=== PATIENT | female | born 1940 | race Caucasian/White ===

== ENCOUNTER → 2016-10-06 | Outpatient (CLI) | payer OTHER ==
[2016-02-05 15:00] VITALS: BP 157/78
[~2016-10-06] MED LIST: AMLO10TA2 PO; AMLO5TAB2 PO; ASPI81TA9 PO; ATOR40TA59 PO; CARV6.252 PO; CLON0.1T PO; CLOP75TA PO; FERR-26 PO; FURO-69 PO; GLIM2TAB2 PO; HYDR12.53 PO; LEVO112T4 PO; LOSA100T6 PO; METF10002 PO; OMEP40CA5 PO; POTA10CA PO; RANI300C PO; SIMV40TA3 PO; TRIA1TAB3 PO
--- NOTE | 2016-10-07 13:43 | CARD ---
APPROVED REPORT EXAM: Two-dimensional and M-mode echocardiogram with Doppler and color Doppler. Other Information Quality : AverageHR: 66bpm Rhythm : NSR, PVC's INDICATION Non STEMI 2D DIMENSIONS RVDd3.0 (2.9-3.5cm)Left Atrium(2D)3.9 (1.6-4.0cm) IVSd0.9 (0.7-1.1cm)Aortic Root(2D)2.7 (2.0-3.7cm) LVDd5.0 (3.9-5.9cm)LVOT Diameter2.1 (1.8-2.4cm) PWd0.9 (0.7-1.1cm)LVDs3.5 (2.5-4.0cm) FS (%) 31.6 %SV71.6 ml LVEF(%)59.2 (>50%) Aortic Valve AoV Peak Hamlet.246.9cm/sAoV VTI61.8cm AO Peak GR.24.4mmHgLVOT Peak Hamlet.100.5cm/s LVOT VTI 26.35cmAO Mean GR.14mmHg RYNE (VMAX)1.35ix7IVN (VTI)1.48cm2 Mitral Valve MV E Snxoleut35.9cm/sMV DECEL FKSC039zf MV A Hwbtocuc427.3cm/sMV E Mean Gr.2mmHg MV YZV21xtM/A Ratio0.9 MV A Fjjjydlg723owHNC (PHT)3.83cm2 TDI E/Lateral E'11.8E/Medial E'10.9 Pulmonary Valve PV Peak Bfvnixdp06.6cm/sPV Peak Grad.3mmHg RVOT VTI18.2cm Tricuspid Valve TR P. Dhfpcmwb436rf/sRAP LEOUTVUS5jqVv TR Peak Gr.17vuYvTLXW38znKd Pulmonary Vein S1 Hpqqqmop86.3cm/sD2 Gushhgnm51.8cm/s PVa wetsiqgm112zhjr LEFT VENTRICLE The left ventricle is normal size. There is normal left ventricular wall thickness. Left ventricle sy stolic function is normal. The Ejection Fraction is 60-65%. There is normal LV segmental wall motion. Transmitral Doppler flow pattern is Grade I-abnormal relaxation pattern. There is no ventricular sep ragini defect visualized. RIGHT VENTRICLE The right ventricle is normal size. The right ventricular systolic function is normal. ATRIA The left atrium size is normal. The right atrium size is normal. The interatrial septum is intact wit h no evidence for an atrial septal defect or patent foramen ovale as noted on 2-D or Doppler imaging. AORTIC VALVE The aortic valve is trileaflet. Doppler and Color Flow revealed trace aortic regurgitation. There is mild valvular aortic stenosis. MITRAL VALVE The mitral valve leaflets are calcified. Mitral annular calcification is mild. There is no evidence o f mitral valve prolapse. There is no mitral valve stenosis. Doppler and Color Flow revealed trace kae ral regurgitation. TRICUSPID VALVE The tricuspid valve is normal in structure. Doppler and Color Flow revealed mild tricuspid regurgitat ion. There is moderate pulmonary hypertension. The PA pressure was estimated at 42 mmHg. PULMONIC VALVE The pulmonary valve is normal in structure. Doppler and Color Flow revealed mild pulmonic valvular re gurgitation. There is no pulmonic valvular stenosis. GREAT VESSELS The aortic root is normal in size. The ascending aorta is normal in size. The pulmonary artery and va lve are not well visualized, but are probably normal size. The IVC is normal in size and collapses >5 0% with inspiration. PERICARDIAL EFFUSION There is no pleural effusion. There is no evidence of significant pericardial effusion. Critical Notification Critical Value: No <Conclusion> Left ventricle systolic function is normal. The Ejection Fraction is 60-65%. There is normal LV segmental wall motion. Transmitral Doppler flow pattern is Grade I-abnormal relaxation pattern. There is mild valvular aortic stenosis. Trace aortic regurgitation. Trace mitral regurgitation. Mild tricuspid regurgitation. There is moderate pulmonary hypertension. The PA pressure was estimated at 42 mmHg. There is no evidence of significant pericardial effusion.
== END | disposition home or self-care (01) ==
LOC: ECHO 08:42
PROVIDERS: ATTEND Nurse Practitioner
DX: I21.4 Non-ST elevation (NSTEMI) myocardial infarction (principal); I27.2 Other secondary pulmonary hypertension; I08.3 Combined rheumatic disorders of mitral, aortic and tricuspid valves
CPT/HCPCS: 93306

== ENCOUNTER → 2017-04-15 | Outpatient (CLI) | payer OTHER ==
[2016-02-05 15:00] VITALS: BP 157/78
[~2017-04-15] MED LIST changes: +ASPI-612 PO; -ASPI81TA9 PO; +METF-620 PO; -METF10002 PO; -POTA10CA PO; +POTASSIUM CHLO10 MEQ PO
--- NOTE | 2017-04-15 12:45 | CARD ---
APPROVED REPORT EXAM: Two-dimensional and M-mode echocardiogram with Doppler and color Doppler. Other Information Quality : GoodHR: 62bpm Rhythm : NSR INDICATION Non STEMI Takotsubo cardiomyopathy RISK FACTORS Obesity 2D DIMENSIONS RVDd3.5 (2.9-3.5cm)Left Atrium(2D)3.6 (1.6-4.0cm) IVSd1.0 (0.7-1.1cm)Aortic Root(2D)2.8 (2.0-3.7cm) LVDd4.5 (3.9-5.9cm)LVOT Diameter2.3 (1.8-2.4cm) PWd0.9 (0.7-1.1cm)LVDs3.2 (2.5-4.0cm) FS (%) 29.8 %SV53.2 ml LVEF(%)57.1 (>50%) Aortic Valve AoV Peak Hamlet.270.5cm/sAoV VTI76.4cm AO Peak GR.29.3mmHgLVOT Peak Hamlet.100.1cm/s AO Mean GR.17mmHgAVA (VMAX)1.56cm2 Mitral Valve MV E Vbgfgrmd80.8cm/sMV E Peak Gr.4mmHg MV DECEL WDGA547zbFT A Baqlodyo287.7cm/s MV E Mean Gr.2mmHgE/A Ratio0.9 MV A Eoqwpfmf813xx Pulmonary Valve PV Peak Ewvnnjoy30.3cm/s Pulmonary Vein S1 Gvaaxzqk55.7cm/sD2 Lrufxjcf16.3cm/s PVa wvlkvisy84jdfk LEFT VENTRICLE The left ventricle is normal size. There is normal left ventricular wall thickness. The left ventricu lar systolic function is normal. The Ejection Fraction is 55-60%. There is normal LV segmental wall m otion. Transmitral Doppler flow pattern is Grade I-abnormal relaxation pattern. RIGHT VENTRICLE The right ventricle is normal size. There is normal right ventricular wall thickness. The right ventr icular systolic function is normal. ATRIA The left atrium is mildly dilated. The right atrium size is normal. The interatrial septum is intact with no evidence for an atrial septal defect or patent foramen ovale as noted on 2-D or Doppler imagi ng. AORTIC VALVE The aortic valve is not well visualized but is calcified and displays decreased opening. Doppler and Color Flow revealed no significant aortic regurgitation. There is mild valvular aortic stenosis. Calc ulated aortic valve area is 1.6 cm2 with maximum pressure gradient of 29 mmHg and mean pressure gradi ent of 17 mmHg. MITRAL VALVE Mitral annular calcification is mild. The mitral valve leaflets are mildly thickened. There is no radha dence of mitral valve prolapse. There is no mitral valve stenosis. Doppler and Color Flow revealed mi ld mitral regurgitation. TRICUSPID VALVE Doppler and Color Flow revealed trace tricuspid regurgitation. PULMONIC VALVE The pulmonic valve is not well visualized but appears to open adequately. Doppler and Color Flow reve aled mild pulmonic valvular regurgitation. There is no pulmonic valvular stenosis by spectral Doppler . GREAT VESSELS The aortic root is normal in size. The ascending aorta is normal in size. The pulmonary artery is nor mal. The IVC is normal in size and collapses >50% with inspiration. PERICARDIAL EFFUSION There is no evidence of significant pericardial effusion. Critical Notification Critical Value: No <Conclusion> The left ventricular systolic function is normal. The Ejection Fraction is 55-60%. There is normal LV segmental wall motion. There is mild valvular aortic stenosis. Mild mitral regurgitation. Trace tricuspid regurgitation. There is no evidence of significant pericardial effusion.
== END | disposition home or self-care (01) ==
LOC: ECHO 10:42
PROVIDERS: ATTEND Internal Medicine Cardiovascular Disease
DX: I08.0 Rheumatic disorders of both mitral and aortic valves (principal)
CPT/HCPCS: 93306

== ENCOUNTER 2017-11-21 09:38 | Inpatient (IN) | payer OTHER ==
[2017-11-21 10:12] LABS: BILIRUBIN,URINE SMALL (NEG); CLARITY,URINE CLOUDY; COLOR,URINE AMBER; GLUCOSE,URINE NEGATIVE (NEG); NITRITE,URINE NEGATIVE (NEG); PROTEIN,URINE 30 mg/dL (NEG-TRACE)
[2017-11-21 10:35] LABS: AMORPHOUS SEDIMENT,UR PRESENT /HPF; BACTERIA,URINE 0 /HPF (0-FEW); HYALINE CASTS, URINE OCCASIONAL /HPF; RBC,URINE 0 /HPF (0-2); SQUAMOUS EPITHELIAL CELL,UR OCC /LPF; WBC,URINE RARE /HPF (0-4)
[2017-11-21] MEDS ORDERED: MORPHINE SULFATE 4 MG/ML DISP.SYRIN. (10:39)
[2017-11-21 10:40] LABS: ANION GAP 8 (6-14); BLOOD UREA NITROGEN 53 mg/dL (7-20); BUN/CREATININE RATIO 18 (6-20); CALCIUM 8.7 mg/dL (8.5-10.1); CARBON DIOXIDE 23 mmol/L (21-32); CHLORIDE 98 mmol/L (98-107); CREATININE 2.9 mg/dL (0.6-1.0); GFR 15.7; GLUCOSE 122 mg/dL (70-99); SODIUM 129 mmol/L (136-145)
[2017-11-21] MEDS: ONDANSETRON PF 4 MG/2 ML VIAL. IV (10:43)
[2017-11-21] MEDS: MORPHINE SULFATE 4 MG/ML DISP.SYRIN. IV (10:44)
[2017-11-21 10:48] LABS: BASO % 0 % (0-3); EOS % 0 % (0-3); HEMATOCRIT 31.5 % (36.0-47.0); HEMOGLOBIN 10.3 g/dL (12.0-15.5); LYMPH # 0.5 x10^3/uL (1.0-4.8); LYMPH % 3 % (24-48); MEAN CORPUSCULAR HEMOGLOBIN 27 pg (25-35); MEAN CORPUSCULAR HGB CONC 33 g/dL (31-37); MEAN CORPUSCULAR VOLUME 82 fL (79-100); MONO # 1.1 x10^3/uL (0.0-1.1); MONO % 6 % (0-9); NEUT # 17.5 x10^3uL (1.8-7.7); NEUT % 92 % (31-73); PLATELET COUNT 161 x10^3/uL (140-400); RED BLOOD COUNT 3.86 x10^6/uL (3.50-5.40); RED CELL DISTRIBUTION WIDTH 16.1 % (11.5-14.5); WHITE BLOOD COUNT 19.1 x10^3/uL (4.0-11.0)
[2017-11-21 10:50] LABS: TROPONINI 0.142 ng/mL (0.000-0.055)
[2017-11-21 10:54] LABS: CKMB INDEX 0.4 % (0-4); CKMB MASS 5.2 ng/mL (0.0-3.6); CREATINE KINASE 1336 U/L (26-192)
[2017-11-21 10:56] LABS: ADD MAN DIFF? YES; ALBUMIN 2.7 g/dL (3.4-5.0); ALBUMIN/GLOBULIN RATIO 0.7 (1.0-1.7); ALK PHOS 70 U/L (46-116); ALT (SGPT) 24 U/L (14-59); AST (SGOT) 52 U/L (15-37); TOTAL PROTEIN 6.7 g/dL (6.4-8.2)
[2017-11-21 10:59] LABS: INR 1.3 (0.8-1.1); PROTHROMBIN TIME PATIENT 15.3 SEC (11.7-14.0)
[2017-11-21] MEDS ORDERED: VANCOMYCIN 1.25 GM in IV NORMAL SALINE 250ML 250 ML IV (11:45)
[2017-11-21] MEDS ORDERED: PIPERACILLIN/TAZOBACTAM 3.375 GM in IV NORMAL SALINE 50ML 50 ML IV (11:45)
[2017-11-21] MEDS: IV NORMAL SALINE 1000ML BAG 1,000 ML IV ×2 (12:10→14:40)
[2017-11-21] MEDS: PIPERACILLIN/TAZOBACTAM 2.25 GM in IV NORMAL SALINE 50ML 50 ML IV ×2 (12:13→21:28)
[2017-11-21 12:38] LABS: % BANDS 12 % (0-9); % LYMPHS 1 % (24-48); % MONOS 3 % (0-10); % SEGS 84 % (35-66); PLT ESTIMATE ADEQUATE (ADEQUATE)
[2017-11-21 12:38] LABS: LACTIC ACID 1.6 mmol/L (0.4-2.0)
[2017-11-21] MEDS ORDERED: ONDANSETRON PF 4 MG/2 ML VIAL. IV ×2 (12:45→14:15)
[2017-11-21 13:01] LABS: CHOLESTEROL 107 mg/dL (0-200); HDLC 22 mg/dL (40-60); LDLC 56 mg/dL (0-100); NON-HDL CHOLESTEROL 85 mg/dL (0-129); TRIGLYCERIDES 147 mg/dL (0-150); VLDLC 29 mg/dL (0-40)
[2017-11-21 13:01] LABS: MAGNESIUM 1.7 mg/dL (1.8-2.4)
[2017-11-21 13:02] LABS: CHOLESTEROL/HDL RATIO 4.9
[2017-11-21 13:10] LABS: THYROID STIM HORMONE (TSH) 2.309 uIU/mL (0.358-3.74)
[2017-11-21] MEDS: fentaNYL PF VIAL 100 MCG/2 ML VIAL IV (13:59)
[2017-11-21] MEDS ORDERED: DOCUSATE SODIUM 100 MG CAPSULE. PO (14:15)
[2017-11-21] MEDS ORDERED: PIP/TAZO PER PHARMACY MC (14:15)
[2017-11-21] MEDS ORDERED: MAGNESIUM SULFATE 2GM 50 ML IV (14:15)
[2017-11-21] MEDS ORDERED: ENOXAPARIN 40 MG/0.4 ML SYRINGE. SQ (14:15)
[2017-11-21] MEDS: VANCOMYCIN 1.5 GM in IV 1/2 NORMAL SALINE 500 ML IV (14:29)
[2017-11-21] MEDS: MAGNESIUM SULFATE 2GM 50 ML IV (14:37)
[2017-11-21] MEDS: INSULIN LISPRO 300 UNITS/3 ML INSULN.PEN. SQ (17:00)
[2017-11-21] MEDS: CARVEDILOL 6.25 MG TABLET. PO (17:00)
[2017-11-21 18:04] LABS: POC GLUCOSE 150 mg/dL (70-99)
[2017-11-21] MEDS: HEPARIN PF for SUB-Q USE 5,000 UNIT/0.5 ML VIAL. SQ (18:15)
[2017-11-21] MEDS: ATORVASTATIN CALCIUM 40 MG TABLET. PO (21:27)
[2017-11-21 22:03] LABS: POC GLUCOSE 136 mg/dL (70-99)
[2017-11-22] MEDS: IV NORMAL SALINE 1000ML BAG 1,000 ML IV ×6 (02:49→20:09)
[2017-11-22] MEDS: traMADol 50 MG TABLET PO (02:49)
[2017-11-22] MEDS: ACETAMINOPHEN 325 MG TABLET. PO (02:49)
[2017-11-22 04:40] LABS: ADD MAN DIFF? NO
[2017-11-22 04:44] LABS: BASO % 0 % (0-3); EOS % 0 % (0-3); HEMATOCRIT 26.9 % (36.0-47.0); LYMPH # 0.7 x10^3/uL (1.0-4.8); LYMPH % 5 % (24-48); MEAN CORPUSCULAR HEMOGLOBIN 27 pg (25-35); MEAN CORPUSCULAR HGB CONC 34 g/dL (31-37); MEAN CORPUSCULAR VOLUME 81 fL (79-100); MONO % 7 % (0-9); NEUT # 13.4 x10^3uL (1.8-7.7); NEUT % 88 % (31-73); PLATELET COUNT 136 x10^3/uL (140-400); RED BLOOD COUNT 3.32 x10^6/uL (3.50-5.40); RED CELL DISTRIBUTION WIDTH 16.4 % (11.5-14.5); WHITE BLOOD COUNT 15.2 x10^3/uL (4.0-11.0)
[2017-11-22 05:20] LABS: ALBUMIN/GLOBULIN RATIO 0.6 (1.0-1.7); ALK PHOS 56 U/L (46-116); ALT (SGPT) 26 U/L (14-59); ANION GAP 9 (6-14); AST (SGOT) 43 U/L (15-37); BLOOD UREA NITROGEN 60 mg/dL (7-20); BUN/CREATININE RATIO 19 (6-20); CALCIUM 8.1 mg/dL (8.5-10.1); CARBON DIOXIDE 21 mmol/L (21-32); CHLORIDE 102 mmol/L (98-107); CREATININE 3.1 mg/dL (0.6-1.0); GFR 14.6; GLUCOSE 80 mg/dL (70-99); POTASSIUM 3.7 mmol/L (3.5-5.1); SODIUM 132 mmol/L (136-145); TOTAL BILIRUBIN 0.8 mg/dL (0.2-1.0); TOTAL PROTEIN 5.6 g/dL (6.4-8.2)
[2017-11-22 05:22] LABS: CKMB INDEX 0.2 % (0-4); CKMB MASS 1.3 ng/mL (0.0-3.6); CREATINE KINASE 613 U/L (26-192)
[2017-11-22] MEDS: PIPERACILLIN/TAZOBACTAM 2.25 GM in IV NORMAL SALINE 50ML 50 ML IV ×3 (06:21→21:31)
[2017-11-22] MEDS: LEVOTHYROXINE 112 MCG TABLET PO (06:22)
[2017-11-22] MEDS: PANTOPRAZOLE 40 MG TABLET.DR. PO (06:22)
[2017-11-22] MEDS: HEPARIN PF for SUB-Q USE 5,000 UNIT/0.5 ML VIAL. SQ ×3 (06:32→21:32)
[2017-11-22] MEDS: INSULIN LISPRO 300 UNITS/3 ML INSULN.PEN. SQ ×3 (07:51→17:00)
[2017-11-22] MEDS: methylPREDNISolone ACETATE 80 MG/ML VIAL. INJ (08:00)
[2017-11-22] MEDS: CARVEDILOL 6.25 MG TABLET. PO ×2 (08:00→17:00)
[2017-11-22] MEDS: LIDOCAINE 1%/EPI 1:100,000 30 ML VIAL. IJ (08:00)
[2017-11-22 08:11] LABS: POC GLUCOSE 70 mg/dL (70-99)
[2017-11-22] MEDS: GLIMEPIRIDE 2 MG TABLET. PO (08:30)
[2017-11-22] MEDS: amLODIPine BESYLATE 10 MG TABLET PO (08:30)
[2017-11-22] MEDS: ASPIRIN ENTERIC COATED 81 MG TABLET.DR. PO (08:40)
[2017-11-22] MEDS: CLOPIDOGREL BISULFATE 75 MG TABLET PO (08:40)
[2017-11-22] MEDS: DIGOXIN IV 500 MCG/2 ML AMPUL. IV (08:42)
[2017-11-22 08:45] LABS: MAGNESIUM 2.1 mg/dL (1.8-2.4)
[2017-11-22] MEDS ORDERED: POTASSIUM CHLORIDE 10 MEQ TABLET.ER. PO (09:00)
[2017-11-22 10:41] LABS: LACTIC ACID 1.1 mmol/L (0.4-2.0)
[2017-11-22] MEDS: IV NORMAL SALINE 500ML BAG 500 ML IV (12:00)
[2017-11-22 12:12] LABS: POC GLUCOSE 90 mg/dL (70-99)
[2017-11-22] MEDS: NOREPINEPHRIN PREMIX 250 ML IV (16:04)
[2017-11-22] MEDS: ATORVASTATIN CALCIUM 40 MG TABLET. PO (21:26)
[2017-11-22] MEDS: LACTOBACILLUS RHAMNOSUS GG 1 CAPSULE. PO (21:26)
[2017-11-23] MEDS: IV NORMAL SALINE 1000ML BAG 1,000 ML IV ×2 (04:22→15:17)
[2017-11-23] MEDS: traMADol 50 MG TABLET PO (04:23)
[2017-11-23 05:39] LABS: ADD MAN DIFF? NO
[2017-11-23] MEDS: PIPERACILLIN/TAZOBACTAM 2.25 GM in IV NORMAL SALINE 50ML 50 ML IV ×3 (05:42→21:42)
[2017-11-23] MEDS: HEPARIN PF for SUB-Q USE 5,000 UNIT/0.5 ML VIAL. SQ ×3 (05:43→21:44)
[2017-11-23 06:05] LABS: BASO % 0 % (0-3); EOS % 0 % (0-3); HEMATOCRIT 27.3 % (36.0-47.0); LYMPH # 0.7 x10^3/uL (1.0-4.8); LYMPH % 3 % (24-48); MEAN CORPUSCULAR HEMOGLOBIN 27 pg (25-35); MEAN CORPUSCULAR HGB CONC 33 g/dL (31-37); MEAN CORPUSCULAR VOLUME 82 fL (79-100); MONO # 0.8 x10^3/uL (0.0-1.1); MONO % 4 % (0-9); NEUT # 19.8 x10^3uL (1.8-7.7); NEUT % 93 % (31-73); PLATELET COUNT 175 x10^3/uL (140-400); RED BLOOD COUNT 3.33 x10^6/uL (3.50-5.40); RED CELL DISTRIBUTION WIDTH 16.8 % (11.5-14.5); WHITE BLOOD COUNT 21.4 x10^3/uL (4.0-11.0)
[2017-11-23 06:21] LABS: MRSA BY PCR Negative (Negative)
[2017-11-23 06:44] LABS: ALBUMIN 1.8 g/dL (3.4-5.0); ALBUMIN/GLOBULIN RATIO 0.5 (1.0-1.7); ALK PHOS 81 U/L (46-116); ALT (SGPT) 21 U/L (14-59); ANION GAP 14 (6-14); AST (SGOT) 32 U/L (15-37); BLOOD UREA NITROGEN 64 mg/dL (7-20); BUN/CREATININE RATIO 21 (6-20); CALCIUM 7.6 mg/dL (8.5-10.1); CARBON DIOXIDE 16 mmol/L (21-32); CHLORIDE 104 mmol/L (98-107); CREATININE 3.1 mg/dL (0.6-1.0); GFR 14.6; GLUCOSE 99 mg/dL (70-99); POTASSIUM 4.1 mmol/L (3.5-5.1); SODIUM 134 mmol/L (136-145); TOTAL BILIRUBIN 0.6 mg/dL (0.2-1.0); TOTAL PROTEIN 5.8 g/dL (6.4-8.2)
[2017-11-23 07:27] LABS: LACTIC ACID 0.9 mmol/L (0.4-2.0)
[2017-11-23] MEDS: INSULIN LISPRO 300 UNITS/3 ML INSULN.PEN. SQ ×3 (08:00→17:00)
[2017-11-23] MEDS: CARVEDILOL 6.25 MG TABLET. PO ×2 (08:00→11:27)
[2017-11-23] MEDS: amLODIPine BESYLATE 10 MG TABLET PO (08:44)
[2017-11-23 08:45] LABS: POC GLUCOSE 79 mg/dL (70-99)
[2017-11-23] MEDS: GLIMEPIRIDE 2 MG TABLET. PO (08:53)
[2017-11-23] MEDS: CLOPIDOGREL BISULFATE 75 MG TABLET PO (08:53)
[2017-11-23] MEDS: LACTOBACILLUS RHAMNOSUS GG 1 CAPSULE. PO ×2 (08:53→20:55)
[2017-11-23] MEDS: PANTOPRAZOLE 40 MG TABLET.DR. PO (08:53)
[2017-11-23] MEDS: ASPIRIN ENTERIC COATED 81 MG TABLET.DR. PO (08:54)
[2017-11-23] MEDS: MORPHINE SULFATE 4 MG/ML DISP.SYRIN. IV (08:54)
[2017-11-23] MEDS: LEVOTHYROXINE 112 MCG TABLET PO (08:54)
[2017-11-23] MEDS: NOREPINEPHRIN PREMIX 250 ML IV (15:17)
[2017-11-23 17:41] LABS: POC GLUCOSE 61 mg/dL (70-99)
[2017-11-23] MEDS: ATORVASTATIN CALCIUM 40 MG TABLET. PO (20:55)
[2017-11-24] MEDS: IV NORMAL SALINE 1000ML BAG 1,000 ML IV ×3 (00:06→19:21)
[2017-11-24] MEDS: DEXTROSE 50% 25 GM / 50ML DISP.SYRIN. IV (04:38)
[2017-11-24 04:46] LABS: POC GLUCOSE 22 mg/dL (70-99)
[2017-11-24 04:46] LABS: POC GLUCOSE 267 mg/dL (70-99)
[2017-11-24 05:27] LABS: POC GLUCOSE 181 mg/dL (70-99)
[2017-11-24 05:38] LABS: ADD MAN DIFF? NO
[2017-11-24 06:03] LABS: BASO % 0 % (0-3); EOS % 0 % (0-3); HEMATOCRIT 28.2 % (36.0-47.0); LYMPH # 0.7 x10^3/uL (1.0-4.8); LYMPH % 4 % (24-48); MEAN CORPUSCULAR HEMOGLOBIN 26 pg (25-35); MEAN CORPUSCULAR HGB CONC 32 g/dL (31-37); MEAN CORPUSCULAR VOLUME 83 fL (79-100); MONO # 1.1 x10^3/uL (0.0-1.1); MONO % 6 % (0-9); NEUT % 90 % (31-73); PLATELET COUNT 177 x10^3/uL (140-400); RED BLOOD COUNT 3.41 x10^6/uL (3.50-5.40); RED CELL DISTRIBUTION WIDTH 17.2 % (11.5-14.5); WHITE BLOOD COUNT 17.9 x10^3/uL (4.0-11.0)
[2017-11-24] MEDS: PIPERACILLIN/TAZOBACTAM 2.25 GM in IV NORMAL SALINE 50ML 50 ML IV ×2 (06:03→14:00)
[2017-11-24 06:04] LABS: POC GLUCOSE 162 mg/dL (70-99)
[2017-11-24] MEDS: HEPARIN PF for SUB-Q USE 5,000 UNIT/0.5 ML VIAL. SQ ×3 (06:04→22:49)
[2017-11-24 06:17] LABS: ANION GAP 10 (6-14); BLOOD UREA NITROGEN 57 mg/dL (7-20); CALCIUM 7.4 mg/dL (8.5-10.1); CARBON DIOXIDE 20 mmol/L (21-32); CHLORIDE 106 mmol/L (98-107); CREATININE 2.6 mg/dL (0.6-1.0); GFR 17.8; GLUCOSE 177 mg/dL (70-99); POTASSIUM 3.8 mmol/L (3.5-5.1); SODIUM 136 mmol/L (136-145)
[2017-11-24] MEDS: CARVEDILOL 6.25 MG TABLET. PO (08:00)
[2017-11-24] MEDS ORDERED: ASPIRIN ENTERIC COATED 81 MG TABLET.DR. PO (08:00)
[2017-11-24] MEDS: INSULIN LISPRO 300 UNITS/3 ML INSULN.PEN. SQ ×3 (08:00→17:00)
[2017-11-24] MEDS: LEVOTHYROXINE 112 MCG TABLET PO (08:40)
[2017-11-24] MEDS: ASPIRIN ENTERIC COATED 81 MG TABLET.DR. PO (08:40)
[2017-11-24] MEDS: PANTOPRAZOLE 40 MG TABLET.DR. PO (08:40)
[2017-11-24] MEDS: CLOPIDOGREL BISULFATE 75 MG TABLET PO (08:41)
[2017-11-24] MEDS: amLODIPine BESYLATE 10 MG TABLET PO (09:00)
[2017-11-24 09:54] LABS: MAGNESIUM 2.2 mg/dL (1.8-2.4)
[2017-11-24] MEDS: GLIMEPIRIDE 2 MG TABLET. PO (10:28)
[2017-11-24] MEDS: LACTOBACILLUS RHAMNOSUS GG 1 CAPSULE. PO ×2 (10:28→20:57)
[2017-11-24] MEDS: traMADol 50 MG TABLET PO ×2 (10:28→22:51)
[2017-11-24] MEDS: ATORVASTATIN CALCIUM 40 MG TABLET. PO (20:57)
[2017-11-25] MEDS: PIPERACILLIN/TAZOBACTAM 2.25 GM in IV NORMAL SALINE 50ML 50 ML IV ×4 (00:07→21:57)
[2017-11-25 03:06] LABS: POC GLUCOSE 150 mg/dL (70-99)
[2017-11-25 03:06] LABS: POC GLUCOSE 214 mg/dL (70-99)
[2017-11-25] MEDS: IV NORMAL SALINE 1000ML BAG 1,000 ML IV ×2 (03:16→20:20)
[2017-11-25] MEDS: MORPHINE SULFATE 4 MG/ML DISP.SYRIN. IV ×2 (04:18→15:25)
[2017-11-25] MEDS: traMADol 50 MG TABLET PO ×2 (05:02→13:32)
[2017-11-25] MEDS: HEPARIN PF for SUB-Q USE 5,000 UNIT/0.5 ML VIAL. SQ ×3 (05:58→22:01)
[2017-11-25 06:51] LABS: ADD MAN DIFF? NO
[2017-11-25 06:54] LABS: BASO % 0 % (0-3); EOS % 0 % (0-3); HEMATOCRIT 26.4 % (36.0-47.0); HEMOGLOBIN 8.6 g/dL (12.0-15.5); LYMPH # 0.9 x10^3/uL (1.0-4.8); LYMPH % 6 % (24-48); MEAN CORPUSCULAR HEMOGLOBIN 27 pg (25-35); MEAN CORPUSCULAR HGB CONC 33 g/dL (31-37); MEAN CORPUSCULAR VOLUME 82 fL (79-100); MONO % 7 % (0-9); NEUT # 12.7 x10^3uL (1.8-7.7); NEUT % 86 % (31-73); PLATELET COUNT 221 x10^3/uL (140-400); RED BLOOD COUNT 3.22 x10^6/uL (3.50-5.40); RED CELL DISTRIBUTION WIDTH 17.3 % (11.5-14.5); WHITE BLOOD COUNT 14.7 x10^3/uL (4.0-11.0)
[2017-11-25 07:04] LABS: ANION GAP 11 (6-14); BLOOD UREA NITROGEN 52 mg/dL (7-20); CALCIUM 7.7 mg/dL (8.5-10.1); CARBON DIOXIDE 18 mmol/L (21-32); CHLORIDE 110 mmol/L (98-107); CREATININE 2.1 mg/dL (0.6-1.0); GFR 22.8; GLUCOSE 88 mg/dL (70-99); POTASSIUM 4.1 mmol/L (3.5-5.1); SODIUM 139 mmol/L (136-145)
[2017-11-25] MEDS: INSULIN LISPRO 300 UNITS/3 ML INSULN.PEN. SQ ×3 (08:00→17:00)
[2017-11-25 08:38] LABS: POC GLUCOSE 60 mg/dL (70-99)
[2017-11-25] MEDS: amLODIPine BESYLATE 10 MG TABLET PO (09:00)
[2017-11-25] MEDS: LACTOBACILLUS RHAMNOSUS GG 1 CAPSULE. PO ×2 (09:11→20:20)
[2017-11-25] MEDS: PANTOPRAZOLE 40 MG TABLET.DR. PO (09:11)
[2017-11-25] MEDS: ASPIRIN ENTERIC COATED 81 MG TABLET.DR. PO (09:11)
[2017-11-25] MEDS: CLOPIDOGREL BISULFATE 75 MG TABLET PO (09:11)
[2017-11-25] MEDS: LEVOTHYROXINE 112 MCG TABLET PO (09:11)
[2017-11-25] MEDS: GLIMEPIRIDE 2 MG TABLET. PO (09:21)
[2017-11-25 11:58] LABS: POC GLUCOSE 81 mg/dL (70-99)
[2017-11-25 18:03] LABS: POC GLUCOSE 68 mg/dL (70-99)
[2017-11-25] MEDS: ATORVASTATIN CALCIUM 40 MG TABLET. PO (20:20)
[2017-11-25] MEDS: DEXTROSE 50% 25 GM / 50ML DISP.SYRIN. IV (21:24)
[2017-11-25 21:44] LABS: POC GLUCOSE 57 mg/dL (70-99)
[2017-11-25 22:01] LABS: POC GLUCOSE 80 mg/dL (70-99)
[2017-11-26 01:02] LABS: POC GLUCOSE 44 mg/dL (70-99)
[2017-11-26] MEDS: DEXTROSE 50% 25 GM / 50ML DISP.SYRIN. IV ×2 (01:02→05:59)
[2017-11-26 01:43] LABS: POC GLUCOSE 109 mg/dL (70-99)
[2017-11-26] MEDS: IV NORMAL SALINE 1000ML BAG 1,000 ML IV ×5 (04:00→20:26)
[2017-11-26 05:59] LABS: POC GLUCOSE 67 mg/dL (70-99)
[2017-11-26 06:12] LABS: ADD MAN DIFF? NO
[2017-11-26] MEDS: PIPERACILLIN/TAZOBACTAM 2.25 GM in IV NORMAL SALINE 50ML 50 ML IV ×4 (06:20→23:35)
[2017-11-26] MEDS: HEPARIN PF for SUB-Q USE 5,000 UNIT/0.5 ML VIAL. SQ ×3 (06:21→20:28)
[2017-11-26 06:32] LABS: ANION GAP 11 (6-14); BLOOD UREA NITROGEN 40 mg/dL (7-20); CALCIUM 7.5 mg/dL (8.5-10.1); CARBON DIOXIDE 18 mmol/L (21-32); CHLORIDE 111 mmol/L (98-107); CREATININE 1.8 mg/dL (0.6-1.0); GFR 27.3; GLUCOSE 177 mg/dL (70-99); POTASSIUM 4.1 mmol/L (3.5-5.1); SODIUM 140 mmol/L (136-145)
[2017-11-26 06:33] LABS: BASO % 0 % (0-3); EOS % 0 % (0-3); HEMATOCRIT 27.4 % (36.0-47.0); HEMOGLOBIN 8.9 g/dL (12.0-15.5); LYMPH # 0.9 x10^3/uL (1.0-4.8); LYMPH % 6 % (24-48); MEAN CORPUSCULAR HEMOGLOBIN 27 pg (25-35); MEAN CORPUSCULAR HGB CONC 32 g/dL (31-37); MEAN CORPUSCULAR VOLUME 82 fL (79-100); MONO # 1.1 x10^3/uL (0.0-1.1); MONO % 7 % (0-9); NEUT # 14.2 x10^3uL (1.8-7.7); NEUT % 87 % (31-73); PLATELET COUNT 253 x10^3/uL (140-400); RED BLOOD COUNT 3.34 x10^6/uL (3.50-5.40); RED CELL DISTRIBUTION WIDTH 17.2 % (11.5-14.5); WHITE BLOOD COUNT 16.3 x10^3/uL (4.0-11.0)
[2017-11-26 06:35] LABS: POC GLUCOSE 102 mg/dL (70-99)
[2017-11-26 07:58] LABS: POC GLUCOSE 81 mg/dL (70-99)
[2017-11-26] MEDS: GLIMEPIRIDE 2 MG TABLET. PO (08:32)
[2017-11-26] MEDS: INSULIN LISPRO 300 UNITS/3 ML INSULN.PEN. SQ ×3 (08:32→17:18)
[2017-11-26] MEDS: CLOPIDOGREL BISULFATE 75 MG TABLET PO (08:34)
[2017-11-26] MEDS: ASPIRIN ENTERIC COATED 81 MG TABLET.DR. PO (08:34)
[2017-11-26] MEDS: LACTOBACILLUS RHAMNOSUS GG 1 CAPSULE. PO ×2 (08:34→20:25)
[2017-11-26] MEDS: PANTOPRAZOLE 40 MG TABLET.DR. PO (08:35)
[2017-11-26] MEDS: LEVOTHYROXINE 112 MCG TABLET PO (08:35)
[2017-11-26] MEDS: METOPROLOL TARTRATE 5 MG/5 ML VIAL. IVP ×2 (08:45→18:20)
[2017-11-26] MEDS: traMADol 50 MG TABLET PO ×2 (10:30→18:19)
[2017-11-26 11:06] LABS: POC GLUCOSE 97 mg/dL (70-99)
[2017-11-26 16:14] LABS: POC GLUCOSE 64 mg/dL (70-99)
[2017-11-26 16:52] LABS: POC GLUCOSE 90 mg/dL (70-99)
[2017-11-26] MEDS: ASPIRIN 325 MG TABLET PO (17:17)
[2017-11-26] MEDS: ACETAMINOPHEN 325 MG TABLET. PO (20:25)
[2017-11-26] MEDS: ATORVASTATIN CALCIUM 40 MG TABLET. PO (20:25)
[2017-11-26 20:58] LABS: POC GLUCOSE 87 mg/dL (70-99)
[2017-11-27 05:35] LABS: ADD MAN DIFF? NO
[2017-11-27] MEDS: IV NORMAL SALINE 1000ML BAG 1,000 ML IV (05:35)
[2017-11-27] MEDS: PIPERACILLIN/TAZOBACTAM 2.25 GM in IV NORMAL SALINE 50ML 50 ML IV ×4 (05:35→23:24)
[2017-11-27] MEDS: LEVOTHYROXINE 112 MCG TABLET PO (05:36)
[2017-11-27] MEDS: HEPARIN PF for SUB-Q USE 5,000 UNIT/0.5 ML VIAL. SQ ×3 (05:39→20:53)
[2017-11-27 05:46] LABS: BASO % 0 % (0-3); EOS # 0.1 x10^3/uL (0.0-0.7); EOS % 0 % (0-3); HEMATOCRIT 27.9 % (36.0-47.0); LYMPH % 6 % (24-48); MEAN CORPUSCULAR HEMOGLOBIN 26 pg (25-35); MEAN CORPUSCULAR HGB CONC 32 g/dL (31-37); MEAN CORPUSCULAR VOLUME 82 fL (79-100); MONO # 1.1 x10^3/uL (0.0-1.1); MONO % 7 % (0-9); NEUT # 14.6 x10^3uL (1.8-7.7); NEUT % 87 % (31-73); PLATELET COUNT 305 x10^3/uL (140-400); RED BLOOD COUNT 3.41 x10^6/uL (3.50-5.40); RED CELL DISTRIBUTION WIDTH 17.1 % (11.5-14.5); WHITE BLOOD COUNT 16.7 x10^3/uL (4.0-11.0)
[2017-11-27] MEDS: METOPROLOL TARTRATE 5 MG/5 ML VIAL. IVP (06:18)
[2017-11-27 06:28] LABS: ALBUMIN 1.6 g/dL (3.4-5.0); ALBUMIN/GLOBULIN RATIO 0.4 (1.0-1.7); ALK PHOS 85 U/L (46-116); ALT (SGPT) 18 U/L (14-59); ANION GAP 10 (6-14); AST (SGOT) 20 U/L (15-37); BLOOD UREA NITROGEN 35 mg/dL (7-20); BUN/CREATININE RATIO 21 (6-20); CALCIUM 8.3 mg/dL (8.5-10.1); CARBON DIOXIDE 18 mmol/L (21-32); CHLORIDE 112 mmol/L (98-107); CREATININE 1.7 mg/dL (0.6-1.0); GFR 29.1; GLUCOSE 103 mg/dL (70-99); SODIUM 140 mmol/L (136-145); TOTAL BILIRUBIN 0.5 mg/dL (0.2-1.0)
[2017-11-27 07:22] LABS: POC GLUCOSE 107 mg/dL (70-99)
[2017-11-27] MEDS: PANTOPRAZOLE 40 MG TABLET.DR. PO (08:25)
[2017-11-27] MEDS: ASPIRIN ENTERIC COATED 81 MG TABLET.DR. PO (08:27)
[2017-11-27] MEDS: CLOPIDOGREL BISULFATE 75 MG TABLET PO (08:27)
[2017-11-27] MEDS: INSULIN LISPRO 300 UNITS/3 ML INSULN.PEN. SQ ×3 (08:28→16:20)
[2017-11-27] MEDS: LACTOBACILLUS RHAMNOSUS GG 1 CAPSULE. PO ×2 (08:29→20:49)
[2017-11-27] MEDS: CARVEDILOL 6.25 MG TABLET. PO (09:31)
[2017-11-27] MEDS: LOSARTAN POTASSIUM 50 MG TABLET. PO (09:32)
[2017-11-27] MEDS: MORPHINE SULFATE 4 MG/ML DISP.SYRIN. IV ×2 (09:33→11:44)
[2017-11-27] MEDS: traMADol 50 MG TABLET PO (09:54)
[2017-11-27 11:26] LABS: POC GLUCOSE 131 mg/dL (70-99)
[2017-11-27] MEDS: METOPROLOL TART IMMED RELEASE 50 MG TABLET. PO ×2 (11:42→20:49)
[2017-11-27] MEDS: amLODIPine BESYLATE 5 MG TABLET PO (11:42)
[2017-11-27 16:18] LABS: POC GLUCOSE 101 mg/dL (70-99)
[2017-11-27 17:09] LABS: C DIFF BY PCR Negative (Negative)
[2017-11-27 20:39] LABS: POC GLUCOSE 117 mg/dL (70-99)
[2017-11-27] MEDS: ATORVASTATIN CALCIUM 40 MG TABLET. PO (20:48)
[2017-11-28] MEDS: LEVOTHYROXINE 112 MCG TABLET PO (05:42)
[2017-11-28] MEDS: PIPERACILLIN/TAZOBACTAM 2.25 GM in IV NORMAL SALINE 50ML 50 ML IV ×4 (05:42→23:40)
[2017-11-28] MEDS: HEPARIN PF for SUB-Q USE 5,000 UNIT/0.5 ML VIAL. SQ ×3 (05:45→20:26)
[2017-11-28 05:53] LABS: ADD MAN DIFF? NO
[2017-11-28 06:01] LABS: BASO # 0.1 x10^3/uL (0.0-0.2); BASO % 0 % (0-3); EOS # 0.1 x10^3/uL (0.0-0.7); EOS % 0 % (0-3); HEMATOCRIT 28.1 % (36.0-47.0); HEMOGLOBIN 9.1 g/dL (12.0-15.5); LYMPH % 6 % (24-48); MEAN CORPUSCULAR HEMOGLOBIN 27 pg (25-35); MEAN CORPUSCULAR HGB CONC 33 g/dL (31-37); MEAN CORPUSCULAR VOLUME 82 fL (79-100); MONO # 0.8 x10^3/uL (0.0-1.1); MONO % 5 % (0-9); NEUT # 14.7 x10^3uL (1.8-7.7); NEUT % 88 % (31-73); PLATELET COUNT 368 x10^3/uL (140-400); RED BLOOD COUNT 3.43 x10^6/uL (3.50-5.40); RED CELL DISTRIBUTION WIDTH 17.1 % (11.5-14.5); WHITE BLOOD COUNT 16.6 x10^3/uL (4.0-11.0)
[2017-11-28 06:19] LABS: ALBUMIN 1.6 g/dL (3.4-5.0); ALBUMIN/GLOBULIN RATIO 0.3 (1.0-1.7); ALK PHOS 78 U/L (46-116); ALT (SGPT) 22 U/L (14-59); ANION GAP 12 (6-14); AST (SGOT) 20 U/L (15-37); BLOOD UREA NITROGEN 36 mg/dL (7-20); BUN/CREATININE RATIO 23 (6-20); CALCIUM 8.1 mg/dL (8.5-10.1); CARBON DIOXIDE 18 mmol/L (21-32); CHLORIDE 112 mmol/L (98-107); CREATININE 1.6 mg/dL (0.6-1.0); GFR 31.3; GLUCOSE 103 mg/dL (70-99); POTASSIUM 4.4 mmol/L (3.5-5.1); SODIUM 142 mmol/L (136-145); TOTAL BILIRUBIN 0.5 mg/dL (0.2-1.0); TOTAL PROTEIN 6.3 g/dL (6.4-8.2)
[2017-11-28 07:40] LABS: POC GLUCOSE 99 mg/dL (70-99)
[2017-11-28] MEDS: PANTOPRAZOLE 40 MG TABLET.DR. PO (07:58)
[2017-11-28] MEDS: INSULIN LISPRO 300 UNITS/3 ML INSULN.PEN. SQ ×3 (08:00→17:00)
[2017-11-28] MEDS: ASPIRIN ENTERIC COATED 81 MG TABLET.DR. PO ×2 (08:00→09:12)
[2017-11-28] MEDS: LOSARTAN POTASSIUM 50 MG TABLET. PO ×2 (09:00→09:11)
[2017-11-28] MEDS: METOPROLOL TART IMMED RELEASE 50 MG TABLET. PO ×3 (09:00→20:17)
[2017-11-28] MEDS: LACTOBACILLUS RHAMNOSUS GG 1 CAPSULE. PO ×3 (09:00→20:17)
[2017-11-28] MEDS: amLODIPine BESYLATE 10 MG TABLET PO (09:11)
[2017-11-28] MEDS: CLOPIDOGREL BISULFATE 75 MG TABLET PO (09:12)
[2017-11-28] MEDS: MORPHINE SULFATE 4 MG/ML DISP.SYRIN. IV ×3 (10:56→16:02)
[2017-11-28] MEDS: hydrALAZINE 20 MG/ML VIAL. IVP (11:36)
[2017-11-28 12:02] LABS: POC GLUCOSE 116 mg/dL (70-99)
[2017-11-28] MEDS: ALTEPLASE 2 MG VIAL INT CAT ×3 (13:31)
[2017-11-28] MEDS: hydrALAZINE 25 MG TABLET PO ×2 (13:45→20:17)
[2017-11-28 17:00] LABS: POC GLUCOSE 116 mg/dL (70-99)
[2017-11-28] MEDS: METOPROLOL TARTRATE 5 MG/5 ML VIAL. IVP ×2 (17:37→23:39)
[2017-11-28] MEDS: traMADol 50 MG TABLET PO (20:16)
[2017-11-28] MEDS: ATORVASTATIN CALCIUM 40 MG TABLET. PO (20:16)
[2017-11-28 21:04] LABS: POC GLUCOSE 119 mg/dL (70-99)
[2017-11-29] MEDS: LEVOTHYROXINE 112 MCG TABLET PO (05:13)
[2017-11-29] MEDS: PIPERACILLIN/TAZOBACTAM 2.25 GM in IV NORMAL SALINE 50ML 50 ML IV (05:28)
[2017-11-29] MEDS: HEPARIN PF for SUB-Q USE 5,000 UNIT/0.5 ML VIAL. SQ ×3 (05:30→20:20)
[2017-11-29 05:50] LABS: BASO # 0.1 x10^3/uL (0.0-0.2); BASO % 0 % (0-3); EOS % 0 % (0-3); HEMATOCRIT 27.1 % (36.0-47.0); HEMOGLOBIN 8.9 g/dL (12.0-15.5); LYMPH # 1.1 x10^3/uL (1.0-4.8); LYMPH % 7 % (24-48); MEAN CORPUSCULAR HEMOGLOBIN 27 pg (25-35); MEAN CORPUSCULAR HGB CONC 33 g/dL (31-37); MEAN CORPUSCULAR VOLUME 82 fL (79-100); MONO # 1.1 x10^3/uL (0.0-1.1); MONO % 7 % (0-9); NEUT # 12.9 x10^3uL (1.8-7.7); NEUT % 85 % (31-73); PLATELET COUNT 382 x10^3/uL (140-400); RED BLOOD COUNT 3.33 x10^6/uL (3.50-5.40); RED CELL DISTRIBUTION WIDTH 17.4 % (11.5-14.5); WHITE BLOOD COUNT 15.2 x10^3/uL (4.0-11.0)
[2017-11-29 06:02] LABS: ADD MAN DIFF? YES
[2017-11-29 06:16] LABS: ANION GAP 11 (6-14); BLOOD UREA NITROGEN 33 mg/dL (7-20); CALCIUM 8.6 mg/dL (8.5-10.1); CARBON DIOXIDE 18 mmol/L (21-32); CHLORIDE 112 mmol/L (98-107); CREATININE 1.5 mg/dL (0.6-1.0); GFR 33.7; GLUCOSE 119 mg/dL (70-99); POTASSIUM 4.2 mmol/L (3.5-5.1); SODIUM 141 mmol/L (136-145)
[2017-11-29] MEDS: METOPROLOL TARTRATE 5 MG/5 ML VIAL. IVP ×3 (06:47→12:30)
[2017-11-29] MEDS: PANTOPRAZOLE 40 MG TABLET.DR. PO (07:30)
[2017-11-29] MEDS: INSULIN LISPRO 300 UNITS/3 ML INSULN.PEN. SQ ×3 (08:00→17:00)
[2017-11-29] MEDS: BARIUM SULFATE 340 GM SUSPENSION. PO (08:00)
[2017-11-29] MEDS: SIMETHICONE/SOD BICARB/CITRIC ACID PACKET. PO (08:00)
[2017-11-29] MEDS: CLOPIDOGREL BISULFATE 75 MG TABLET PO (08:00)
[2017-11-29] MEDS: ASPIRIN ENTERIC COATED 81 MG TABLET.DR. PO (08:00)
[2017-11-29 08:04] LABS: % LYMPHS 7 % (24-48); % MONOS 5 % (0-10); % SEGS 88 % (35-66); ANISOCYTOSIS SLIGHT
[2017-11-29 08:05] LABS: PLT ESTIMATE ADEQUATE (ADEQUATE)
[2017-11-29 08:36] LABS: POC GLUCOSE 109 mg/dL (70-99)
[2017-11-29] MEDS: hydrALAZINE 25 MG TABLET PO ×3 (09:00→20:12)
[2017-11-29] MEDS: amLODIPine BESYLATE 10 MG TABLET PO (09:00)
[2017-11-29] MEDS: LOSARTAN POTASSIUM 50 MG TABLET. PO (09:00)
[2017-11-29] MEDS: LACTOBACILLUS RHAMNOSUS GG 1 CAPSULE. PO ×2 (09:00→20:20)
[2017-11-29] MEDS: METOPROLOL TART IMMED RELEASE 50 MG TABLET. PO (09:00)
[2017-11-29] MEDS: BARIUM SULFATE 60% 355 ML SUSP PO (09:09)
[2017-11-29] MEDS: MORPHINE SULFATE 4 MG/ML DISP.SYRIN. IV ×4 (09:53→20:26)
[2017-11-29] MEDS: DIGOXIN IV 500 MCG/2 ML AMPUL. IV (09:54)
[2017-11-29 11:42] LABS: POC GLUCOSE 115 mg/dL (70-99)
[2017-11-29] MEDS: METOPROLOL TART IMMED RELEASE 25 MG TABLET. PO ×2 (16:05→23:02)
[2017-11-29 17:02] LABS: POC GLUCOSE 102 mg/dL (70-99)
[2017-11-29] MEDS: ATORVASTATIN CALCIUM 40 MG TABLET. PO (20:20)
[2017-11-29] MEDS: ceFAZolin SODIUM IV Push 1 GM VIAL. IVP (20:26)
[2017-11-29 20:45] LABS: POC GLUCOSE 119 mg/dL (70-99)
[2017-11-29] MEDS ORDERED: ceFAZolin SODIUM 1 GM in IV DEXTROSE 5% 50 ML IV (21:00)
[2017-11-30 05:32] LABS: ADD MAN DIFF? NO
[2017-11-30 05:36] LABS: BASO # 0.1 x10^3/uL (0.0-0.2); BASO % 1 % (0-3); EOS # 0.1 x10^3/uL (0.0-0.7); EOS % 1 % (0-3); HEMATOCRIT 26.4 % (36.0-47.0); HEMOGLOBIN 8.6 g/dL (12.0-15.5); LYMPH # 1.3 x10^3/uL (1.0-4.8); LYMPH % 11 % (24-48); MEAN CORPUSCULAR HEMOGLOBIN 27 pg (25-35); MEAN CORPUSCULAR HGB CONC 33 g/dL (31-37); MEAN CORPUSCULAR VOLUME 82 fL (79-100); MONO # 0.9 x10^3/uL (0.0-1.1); MONO % 7 % (0-9); NEUT # 10.4 x10^3uL (1.8-7.7); NEUT % 81 % (31-73); PLATELET COUNT 380 x10^3/uL (140-400); RED BLOOD COUNT 3.22 x10^6/uL (3.50-5.40); RED CELL DISTRIBUTION WIDTH 16.6 % (11.5-14.5); WHITE BLOOD COUNT 12.8 x10^3/uL (4.0-11.0)
[2017-11-30 05:49] LABS: ANION GAP 12 (6-14); BLOOD UREA NITROGEN 32 mg/dL (7-20); CARBON DIOXIDE 21 mmol/L (21-32); CHLORIDE 112 mmol/L (98-107); CREATININE 1.4 mg/dL (0.6-1.0); GFR 36.5; GLUCOSE 110 mg/dL (70-99); POTASSIUM 4.2 mmol/L (3.5-5.1); SODIUM 145 mmol/L (136-145)
[2017-11-30] MEDS: HEPARIN PF for SUB-Q USE 5,000 UNIT/0.5 ML VIAL. SQ ×3 (05:51→20:24)
[2017-11-30] MEDS: METOPROLOL TART IMMED RELEASE 25 MG TABLET. PO ×3 (05:51→23:47)
[2017-11-30] MEDS: LEVOTHYROXINE 112 MCG TABLET PO (05:53)
[2017-11-30] MEDS: PANTOPRAZOLE 40 MG TABLET.DR. PO (07:30)
[2017-11-30] MEDS: INSULIN LISPRO 300 UNITS/3 ML INSULN.PEN. SQ ×3 (08:00→17:00)
[2017-11-30] MEDS: CLOPIDOGREL BISULFATE 75 MG TABLET PO (08:00)
[2017-11-30] MEDS: ASPIRIN ENTERIC COATED 81 MG TABLET.DR. PO (08:00)
[2017-11-30] MEDS ORDERED: fentaNYL PF VIAL 100 MCG/2 ML VIAL IV (08:30)
[2017-11-30] MEDS ORDERED: LIDOCAINE 1% PF 2 ML VIAL. ID (08:30)
[2017-11-30] MEDS ORDERED: PROCHLORPERAZINE 10 MG/2 ML VIAL. IV (08:30)
[2017-11-30] MEDS ORDERED: MORPHINE SULFATE 4 MG/ML DISP.SYRIN. IV (08:30)
[2017-11-30] MEDS ORDERED: ONDANSETRON PF 4 MG/2 ML VIAL. IV (08:30)
[2017-11-30] MEDS: METOPROLOL TARTRATE 5 MG/5 ML VIAL. IVP ×2 (08:38→14:52)
[2017-11-30] MEDS: ceFAZolin SODIUM IV Push 1 GM VIAL. IVP ×4 (09:00→20:20)
[2017-11-30] MEDS: LACTOBACILLUS RHAMNOSUS GG 1 CAPSULE. PO ×2 (09:00→20:22)
[2017-11-30] MEDS: LOSARTAN POTASSIUM 50 MG TABLET. PO (09:00)
[2017-11-30] MEDS: hydrALAZINE 25 MG TABLET PO ×3 (09:00→20:21)
[2017-11-30] MEDS: amLODIPine BESYLATE 10 MG TABLET PO (09:00)
[2017-11-30] MEDS: IV RINGERS,LACTATED 1000ML 1,000 ML IV (09:08)
[2017-11-30] MEDS ORDERED: PROPOFOL 20 ML IV (09:23)
[2017-11-30] MEDS ORDERED: LIDOCAINE 2% PF Vial for OR 5 ML VIAL. (09:23)
[2017-11-30 11:46] LABS: POC GLUCOSE 100 mg/dL (70-99)
[2017-11-30] MEDS ORDERED: METOPROLOL TART IMMED RELEASE 25 MG TABLET. PO (12:00)
[2017-11-30] MEDS: fentaNYL PF VIAL 100 MCG/2 ML VIAL IV (12:39)
[2017-11-30] MEDS: MORPHINE SULFATE 4 MG/ML DISP.SYRIN. IV (14:47)
[2017-11-30 17:15] LABS: POC GLUCOSE 121 mg/dL (70-99)
[2017-11-30] MEDS: traMADol 50 MG TABLET PO (20:22)
[2017-11-30] MEDS: ATORVASTATIN CALCIUM 40 MG TABLET. PO (20:22)
[2017-11-30] MEDS: FUROSEMIDE 40 MG/4 ML VIAL. IVP (20:22)
[2017-11-30 21:00] LABS: POC GLUCOSE 119 mg/dL (70-99)
[2017-12-01] MEDS: METOPROLOL TART IMMED RELEASE 25 MG TABLET. PO ×3 (00:10→20:58)
[2017-12-01] MEDS: LEVOTHYROXINE 112 MCG TABLET PO (05:38)
[2017-12-01] MEDS: HEPARIN PF for SUB-Q USE 5,000 UNIT/0.5 ML VIAL. SQ ×3 (05:41→21:07)
[2017-12-01 07:07] LABS: POC GLUCOSE 97 mg/dL (70-99)
[2017-12-01 07:28] LABS: POC GLUCOSE 115 mg/dL (70-99)
[2017-12-01] MEDS: INSULIN LISPRO 300 UNITS/3 ML INSULN.PEN. SQ ×3 (08:00→17:00)
[2017-12-01] MEDS: CLOPIDOGREL BISULFATE 75 MG TABLET PO (08:45)
[2017-12-01] MEDS: LACTOBACILLUS RHAMNOSUS GG 1 CAPSULE. PO ×2 (08:46→20:58)
[2017-12-01] MEDS: hydrALAZINE 25 MG TABLET PO ×3 (08:46→20:59)
[2017-12-01] MEDS: LOSARTAN POTASSIUM 50 MG TABLET. PO (08:47)
[2017-12-01] MEDS: ASPIRIN ENTERIC COATED 81 MG TABLET.DR. PO (08:50)
[2017-12-01] MEDS: LANSOPRAZOLE 30 MG TAB.RAP.DR FT (10:09)
[2017-12-01 12:00] LABS: POC GLUCOSE 160 mg/dL (70-99)
[2017-12-01] MEDS: ceFAZolin SODIUM IV Push 1 GM VIAL. IVP ×2 (12:37→20:59)
[2017-12-01] MEDS: traMADol 50 MG TABLET PO ×2 (12:40→20:58)
[2017-12-01 16:59] LABS: POC GLUCOSE 115 mg/dL (70-99)
[2017-12-01] MEDS: METOPROLOL TARTRATE 5 MG/5 ML VIAL. IVP (17:42)
[2017-12-01 20:34] LABS: POC GLUCOSE 148 mg/dL (70-99)
[2017-12-01] MEDS: ATORVASTATIN CALCIUM 40 MG TABLET. PO (20:58)
[2017-12-02] MEDS: LEVOTHYROXINE 112 MCG TABLET PO (05:51)
[2017-12-02] MEDS: LANSOPRAZOLE 30 MG TAB.RAP.DR FT (05:52)
[2017-12-02] MEDS: HEPARIN PF for SUB-Q USE 5,000 UNIT/0.5 ML VIAL. SQ ×3 (05:59→20:45)
[2017-12-02 06:19] LABS: HEMATOCRIT 26.8 % (36.0-47.0); HEMOGLOBIN 8.8 g/dL (12.0-15.5); MEAN CORPUSCULAR HEMOGLOBIN 27 pg (25-35); MEAN CORPUSCULAR HGB CONC 33 g/dL (31-37); MEAN CORPUSCULAR VOLUME 82 fL (79-100); PLATELET COUNT 374 x10^3/uL (140-400); RED BLOOD COUNT 3.27 x10^6/uL (3.50-5.40); RED CELL DISTRIBUTION WIDTH 16.9 % (11.5-14.5); WHITE BLOOD COUNT 9.7 x10^3/uL (4.0-11.0)
[2017-12-02 06:26] LABS: ALBUMIN 1.8 g/dL (3.4-5.0); ALBUMIN/GLOBULIN RATIO 0.4 (1.0-1.7); ALK PHOS 65 U/L (46-116); ALT (SGPT) 12 U/L (14-59); ANION GAP 9 (6-14); AST (SGOT) 17 U/L (15-37); BLOOD UREA NITROGEN 25 mg/dL (7-20); BUN/CREATININE RATIO 21 (6-20); CALCIUM 8.3 mg/dL (8.5-10.1); CARBON DIOXIDE 23 mmol/L (21-32); CHLORIDE 113 mmol/L (98-107); CREATININE 1.2 mg/dL (0.6-1.0); GFR 43.6; GLUCOSE 133 mg/dL (70-99); POTASSIUM 3.6 mmol/L (3.5-5.1); SODIUM 145 mmol/L (136-145); TOTAL BILIRUBIN 0.4 mg/dL (0.2-1.0)
[2017-12-02 07:35] LABS: POC GLUCOSE 125 mg/dL (70-99)
[2017-12-02] MEDS: INSULIN LISPRO 300 UNITS/3 ML INSULN.PEN. SQ ×3 (08:00→17:00)
[2017-12-02] MEDS: ceFAZolin SODIUM IV Push 1 GM VIAL. IVP ×2 (08:39→20:35)
[2017-12-02] MEDS: ASPIRIN ENTERIC COATED 81 MG TABLET.DR. PO (08:40)
[2017-12-02] MEDS: LACTOBACILLUS RHAMNOSUS GG 1 CAPSULE. PO ×2 (08:40→20:34)
[2017-12-02] MEDS: hydrALAZINE 25 MG TABLET PO ×3 (08:42→20:34)
[2017-12-02] MEDS: LOSARTAN POTASSIUM 50 MG TABLET. PO (08:43)
[2017-12-02] MEDS: CLOPIDOGREL BISULFATE 75 MG TABLET PO (08:44)
[2017-12-02] MEDS: METOPROLOL TART IMMED RELEASE 25 MG TABLET. PO ×2 (08:45→14:15)
[2017-12-02 11:35] LABS: POC GLUCOSE 192 mg/dL (70-99)
[2017-12-02 16:52] LABS: POC GLUCOSE 126 mg/dL (70-99)
[2017-12-02] MEDS: FUROSEMIDE 40 MG/4 ML VIAL. IVP (17:45)
[2017-12-02] MEDS: ATORVASTATIN CALCIUM 40 MG TABLET. PO (20:34)
[2017-12-02] MEDS: METOPROLOL TART IMMED RELEASE 50 MG TABLET. PO (20:35)
[2017-12-02 20:41] LABS: POC GLUCOSE 150 mg/dL (70-99)
[2017-12-03 05:41] LABS: HEMATOCRIT 26.1 % (36.0-47.0); HEMOGLOBIN 8.8 g/dL (12.0-15.5); MEAN CORPUSCULAR HEMOGLOBIN 28 pg (25-35); MEAN CORPUSCULAR HGB CONC 34 g/dL (31-37); MEAN CORPUSCULAR VOLUME 82 fL (79-100); PLATELET COUNT 336 x10^3/uL (140-400); RED BLOOD COUNT 3.18 x10^6/uL (3.50-5.40); RED CELL DISTRIBUTION WIDTH 17.1 % (11.5-14.5); WHITE BLOOD COUNT 9.1 x10^3/uL (4.0-11.0)
[2017-12-03] MEDS: LANSOPRAZOLE 30 MG TAB.RAP.DR FT (05:41)
[2017-12-03] MEDS: LEVOTHYROXINE 112 MCG TABLET PO (05:41)
[2017-12-03] MEDS: HEPARIN PF for SUB-Q USE 5,000 UNIT/0.5 ML VIAL. SQ ×3 (05:42→20:39)
[2017-12-03 06:22] LABS: ALBUMIN/GLOBULIN RATIO 0.5 (1.0-1.7); ALK PHOS 63 U/L (46-116); ALT (SGPT) 15 U/L (14-59); ANION GAP 10 (6-14); AST (SGOT) 23 U/L (15-37); BLOOD UREA NITROGEN 23 mg/dL (7-20); BUN/CREATININE RATIO 21 (6-20); CALCIUM 7.9 mg/dL (8.5-10.1); CARBON DIOXIDE 23 mmol/L (21-32); CHLORIDE 112 mmol/L (98-107); CREATININE 1.1 mg/dL (0.6-1.0); GFR 48.2; GLUCOSE 132 mg/dL (70-99); POTASSIUM 3.6 mmol/L (3.5-5.1); SODIUM 145 mmol/L (136-145); TOTAL BILIRUBIN 0.5 mg/dL (0.2-1.0); TOTAL PROTEIN 6.3 g/dL (6.4-8.2)
[2017-12-03 06:52] LABS: SEDIMENTATION RATE 32 (0-25)
[2017-12-03 07:32] LABS: POC GLUCOSE 131 mg/dL (70-99)
[2017-12-03] MEDS: INSULIN LISPRO 300 UNITS/3 ML INSULN.PEN. SQ ×3 (07:55→16:55)
[2017-12-03] MEDS: hydrALAZINE 25 MG TABLET PO ×3 (08:27→20:36)
[2017-12-03] MEDS: FUROSEMIDE 40 MG/4 ML VIAL. IVP (08:28)
[2017-12-03] MEDS: LACTOBACILLUS RHAMNOSUS GG 1 CAPSULE. PO ×2 (08:28→20:36)
[2017-12-03] MEDS: ASPIRIN ENTERIC COATED 81 MG TABLET.DR. PO (08:28)
[2017-12-03] MEDS: CLOPIDOGREL BISULFATE 75 MG TABLET PO (08:28)
[2017-12-03] MEDS: METOPROLOL TART IMMED RELEASE 50 MG TABLET. PO ×2 (08:28→20:37)
[2017-12-03] MEDS: LOSARTAN POTASSIUM 50 MG TABLET. PO (08:28)
[2017-12-03] MEDS: ceFAZolin SODIUM IV Push 1 GM VIAL. IVP ×2 (08:29→20:37)
[2017-12-03 12:07] LABS: POC GLUCOSE 162 mg/dL (70-99)
[2017-12-03 16:47] LABS: POC GLUCOSE 98 mg/dL (70-99)
[2017-12-03] MEDS: ATORVASTATIN CALCIUM 40 MG TABLET. PO (20:37)
[2017-12-03 20:51] LABS: POC GLUCOSE 146 mg/dL (70-99)
[2017-12-04] MEDS: LEVOTHYROXINE 112 MCG TABLET PO (05:09)
[2017-12-04] MEDS: LANSOPRAZOLE 30 MG TAB.RAP.DR FT (05:09)
[2017-12-04] MEDS: HEPARIN PF for SUB-Q USE 5,000 UNIT/0.5 ML VIAL. SQ ×3 (05:15→20:38)
[2017-12-04 07:12] LABS: POC GLUCOSE 123 mg/dL (70-99)
[2017-12-04] MEDS: INSULIN LISPRO 300 UNITS/3 ML INSULN.PEN. SQ ×3 (08:00→16:37)
[2017-12-04] MEDS: hydrALAZINE 25 MG TABLET PO ×3 (08:21→20:36)
[2017-12-04] MEDS: CLOPIDOGREL BISULFATE 75 MG TABLET PO (08:21)
[2017-12-04] MEDS: LOSARTAN POTASSIUM 50 MG TABLET. PO (08:21)
[2017-12-04] MEDS: LACTOBACILLUS RHAMNOSUS GG 1 CAPSULE. PO ×2 (08:21→20:36)
[2017-12-04] MEDS: ASPIRIN ENTERIC COATED 81 MG TABLET.DR. PO (08:22)
[2017-12-04] MEDS: METOPROLOL TART IMMED RELEASE 50 MG TABLET. PO ×2 (08:22→20:37)
[2017-12-04] MEDS: ceFAZolin SODIUM IV Push 1 GM VIAL. IVP ×2 (08:27→20:37)
[2017-12-04 11:12] LABS: POC GLUCOSE 173 mg/dL (70-99)
[2017-12-04 16:38] LABS: POC GLUCOSE 148 mg/dL (70-99)
[2017-12-04] MEDS: ATORVASTATIN CALCIUM 40 MG TABLET. PO (20:36)
[2017-12-04 21:04] LABS: POC GLUCOSE 145 mg/dL (70-99)
[2017-12-05] MEDS: LEVOTHYROXINE 112 MCG TABLET PO (05:34)
[2017-12-05] MEDS: LANSOPRAZOLE 30 MG TAB.RAP.DR FT (05:34)
[2017-12-05] MEDS: HEPARIN PF for SUB-Q USE 5,000 UNIT/0.5 ML VIAL. SQ ×2 (05:39→13:38)
[2017-12-05 05:56] LABS: HEMATOCRIT 25.7 % (36.0-47.0); HEMOGLOBIN 8.4 g/dL (12.0-15.5); MEAN CORPUSCULAR HEMOGLOBIN 27 pg (25-35); MEAN CORPUSCULAR HGB CONC 33 g/dL (31-37); MEAN CORPUSCULAR VOLUME 82 fL (79-100); PLATELET COUNT 306 x10^3/uL (140-400); RED BLOOD COUNT 3.13 x10^6/uL (3.50-5.40); RED CELL DISTRIBUTION WIDTH 17.5 % (11.5-14.5); WHITE BLOOD COUNT 7.4 x10^3/uL (4.0-11.0)
[2017-12-05 06:14] LABS: ALBUMIN 2.1 g/dL (3.4-5.0); ALBUMIN/GLOBULIN RATIO 0.6 (1.0-1.7); ALK PHOS 69 U/L (46-116); ALT (SGPT) 13 U/L (14-59); ANION GAP 10 (6-14); AST (SGOT) 24 U/L (15-37); BLOOD UREA NITROGEN 19 mg/dL (7-20); BUN/CREATININE RATIO 17 (6-20); CALCIUM 7.6 mg/dL (8.5-10.1); CARBON DIOXIDE 26 mmol/L (21-32); CHLORIDE 110 mmol/L (98-107); CREATININE 1.1 mg/dL (0.6-1.0); GFR 48.2; GLUCOSE 122 mg/dL (70-99); POTASSIUM 3.5 mmol/L (3.5-5.1); SODIUM 146 mmol/L (136-145); TOTAL BILIRUBIN 0.5 mg/dL (0.2-1.0); TOTAL PROTEIN 5.8 g/dL (6.4-8.2)
[2017-12-05] MEDS: INSULIN LISPRO 300 UNITS/3 ML INSULN.PEN. SQ ×3 (08:00→17:00)
[2017-12-05 08:09] LABS: POC GLUCOSE 110 mg/dL (70-99)
[2017-12-05] MEDS: LACTOBACILLUS RHAMNOSUS GG 1 CAPSULE. PO ×2 (08:47→20:41)
[2017-12-05] MEDS: ASPIRIN ENTERIC COATED 81 MG TABLET.DR. PO (08:47)
[2017-12-05] MEDS: CLOPIDOGREL BISULFATE 75 MG TABLET PO (08:47)
[2017-12-05] MEDS: LOSARTAN POTASSIUM 50 MG TABLET. PO (08:49)
[2017-12-05] MEDS: METOPROLOL TART IMMED RELEASE 50 MG TABLET. PO ×2 (08:49→20:42)
[2017-12-05] MEDS: hydrALAZINE 25 MG TABLET PO ×3 (08:49→20:41)
[2017-12-05] MEDS: ceFAZolin SODIUM IV Push 1 GM VIAL. IVP (09:00)
[2017-12-05 11:49] LABS: POC GLUCOSE 156 mg/dL (70-99)
[2017-12-05] MEDS: FUROSEMIDE 40 MG/4 ML VIAL. IVP (13:32)
[2017-12-05] MEDS: CEPHALEXIN 250 MG CAPSULE. PO ×2 (13:41→20:41)
[2017-12-05 16:32] LABS: POC GLUCOSE 133 mg/dL (70-99)
[2017-12-05] MEDS: APIXABAN 5 MG TABLET. PO (18:19)
[2017-12-05] MEDS: ISOSORBIDE MONONITRATE ER 30 MG TAB.ER.24H PO (18:20)
[2017-12-05] MEDS: ATORVASTATIN CALCIUM 40 MG TABLET. PO (20:41)
[2017-12-05 20:42] LABS: POC GLUCOSE 151 mg/dL (70-99)
[2017-12-06] MEDS: LEVOTHYROXINE 112 MCG TABLET PO (05:33)
[2017-12-06] MEDS: LANSOPRAZOLE 30 MG TAB.RAP.DR FT (05:33)
[2017-12-06] MEDS: INSULIN LISPRO 300 UNITS/3 ML INSULN.PEN. SQ ×2 (08:00→13:55)
[2017-12-06 08:07] LABS: POC GLUCOSE 97 mg/dL (70-99)
[2017-12-06] MEDS: LACTOBACILLUS RHAMNOSUS GG 1 CAPSULE. PO (08:49)
[2017-12-06] MEDS: APIXABAN 5 MG TABLET. PO (08:50)
[2017-12-06] MEDS: METOPROLOL TART IMMED RELEASE 50 MG TABLET. PO (08:50)
[2017-12-06] MEDS: hydrALAZINE 25 MG TABLET PO ×2 (08:50→13:31)
[2017-12-06] MEDS: ISOSORBIDE MONONITRATE ER 30 MG TAB.ER.24H PO (08:51)
[2017-12-06] MEDS: LOSARTAN POTASSIUM 50 MG TABLET. PO (08:51)
[2017-12-06] MEDS: CEPHALEXIN 250 MG CAPSULE. PO ×2 (08:51→13:31)
[2017-12-06 10:04] LABS: ANION GAP 9 (6-14); BLOOD UREA NITROGEN 20 mg/dL (7-20); CALCIUM 7.9 mg/dL (8.5-10.1); CARBON DIOXIDE 29 mmol/L (21-32); CHLORIDE 106 mmol/L (98-107); CREATININE 1.3 mg/dL (0.6-1.0); GFR 39.7; GLUCOSE 130 mg/dL (70-99); MAGNESIUM 1.6 mg/dL (1.8-2.4); POTASSIUM 3.2 mmol/L (3.5-5.1); SODIUM 144 mmol/L (136-145)
[2017-12-06] MEDS ORDERED: FUROSEMIDE 40 MG TABLET. PO (11:30)
[2017-12-06 11:39] LABS: POC GLUCOSE 157 mg/dL (70-99)
[2017-12-06] MEDS: POTASSIUM CHLORIDE 20 MEQ TABLET.ER. PO (13:30)
[2017-12-06] MEDS: MAGNESIUM SULFATE 2GM 50 ML IV (13:50)
[2017-12-06] MEDS ORDERED: ISOSORBIDE MONONITRATE ER 30 MG TAB.ER.24H PO (21:00)
== END 2017-12-06 04:00 | DRG 871 ==
LOC: 1 WEST ICU 11-22 12:11 → 5 NORTH 11-25 19:20 → ER 09:38 → ED HOLD 13:08 → 2 NORTH 16:00
PROC: 0DB28ZX Excision of Middle Esophagus, Via Natural or Artificial Opening Endoscopic, Diagnostic (ICD-10-PCS; principal; 2017-11-30 09:29)
PROC: 02HV33Z Insertion of Infusion Device into Superior Vena Cava, Percutaneous Approach (ICD-10-PCS; 2017-11-30 09:29)
PROC: 0D758ZZ Dilation of Esophagus, Via Natural or Artificial Opening Endoscopic (ICD-10-PCS; 2017-11-30 09:29)
DX: A41.9 Sepsis, unspecified organism (principal); R65.21 Severe sepsis with septic shock; N17.0 Acute kidney failure with tubular necrosis; E11.22 Type 2 diabetes mellitus with diabetic chronic kidney disease; E11.649 Type 2 diabetes mellitus with hypoglycemia without coma; I48.0 Paroxysmal atrial fibrillation; E86.0 Dehydration; I48.1 Persistent atrial fibrillation; E66.01 Morbid (severe) obesity due to excess calories; E83.42 Hypomagnesemia; E87.1 Hypo-osmolality and hyponatremia; I42.8 Other cardiomyopathies; E87.2 Acidosis; I13.0 Hypertensive heart and chronic kidney disease with heart failure and stage 1 through stage 4 chronic kidney disease, or unspecified chronic kidney disease; I50.30 Unspecified diastolic (congestive) heart failure; I82.619 Acute embolism and thrombosis of superficial veins of unspecified upper extremity; L03.115 Cellulitis of right lower limb; M62.82 Rhabdomyolysis; D64.9 Anemia, unspecified; E03.9 Hypothyroidism, unspecified; Z68.35 Body mass index [BMI] 35.0-35.9, adult; E78.00 Pure hypercholesterolemia, unspecified; E78.5 Hyperlipidemia, unspecified; G89.29 Other chronic pain; I87.2 Venous insufficiency (chronic) (peripheral); K21.9 Gastro-esophageal reflux disease without esophagitis; K44.9 Diaphragmatic hernia without obstruction or gangrene; K57.30 Diverticulosis of large intestine without perforation or abscess without bleeding; K76.89 Other specified diseases of liver; M17.11 Unilateral primary osteoarthritis, right knee; N18.3 Chronic kidney disease, stage 3 (moderate); Z90.710 Acquired absence of both cervix and uterus; Z91.040 Latex allergy status; Z60.2 Problems related to living alone; Z82.49 Family history of ischemic heart disease and other diseases of the circulatory system; R13.10 Dysphagia, unspecified; L03.032 Cellulitis of left toe; K22.2 Esophageal obstruction
CPT/HCPCS: 36415; 36569; 70450; 71045; 71046; 72100; 72125; 72170; 73562; 73590; 73610; 73700; 74176; 74220; 76770; 80048; 80053; 80061; 81001; 82553; 82962; 83605; 83735; 84443; 84484; 85007; 85025; 85027; 85610; 85651; 87040; 87045; 87071; 87075; 87205; 87324; 87641; 93005; 93306; 93971; 96365; 96368; 96375; 97116-GP; 97163-GP; 97166-GO; 97168-GO; 97530-GO; 97530-GP; 97535-GO; 99285; 99285-25; J0360; J0690; J1040; J1160; J1940; J2270; J2405; J2543; J2704; J2997; J3010; J3370; J3475; J3490; J7030; J7042; J7120

== ENCOUNTER → 2018-03-22 | Outpatient (CLI) | payer OTHER ==
[2017-12-06 13:31] VITALS: BP 124/52
[~2018-03-22] MED LIST changes: -FERR-26 PO; +FERR325T14 PO; -METF-620 PO; +METF10003 PO; +POTA10TA12 PO; -POTASSIUM CHLO10 MEQ PO
--- NOTE | 2018-03-22 15:38 | CARD ---
MR#: [id number] Date of Study: 03/22/2018 Ordering Physician: STEPHEN KOCH, Referring Physician: STEPHEN KOCH, Tech: Traci Montgomery [facility] APPROVED REPORT EXAM: Two-dimensional and M-mode echocardiogram with Doppler and color Doppler. Other Information Quality : Good INDICATION Takotsubo Cardiomyopathy 2D DIMENSIONS RVDd2.6 (2.9-3.5cm)Left Atrium(2D)4.5 (1.6-4.0cm) IVSd0.8 (0.7-1.1cm)Aortic Root(2D)3.0 (2.0-3.7cm) LVDd5.1 (3.9-5.9cm)LVOT Diameter2.0 (1.8-2.4cm) PWd0.9 (0.7-1.1cm)LVDs3.4 (2.5-4.0cm) FS (%) 34.9 %SV80.7 ml LVEF(%)60.0 (>50%) Aortic Valve AoV Peak Hamlet.304.4cm/sAoV VTI80.8cm AO Peak GR.37.1mmHgLVOT Peak Hamlet.111.8cm/s AO Mean GR.20mmHgAVA (VMAX)1.18cm2 RYNE (VTI)1.31py5BT P 1/2 Edcr609oi Mitral Valve MV E Lmioyfnb958.7cm/sMV DECEL RGDD619pq MV A Rxrwxkgo52.6cm/sE/A Ratio1.6 Tricuspid Valve TR P. Adyxtrlf092wf/sRAP RDNRNEOO5waXr TR Peak Gr.47nwOwCMIQ51oaLf Pulmonary Vein S1 Weimgqwc01.2cm/sD2 Tsehtgih18.5cm/s LEFT VENTRICLE The left ventricle is normal size. There is normal left ventricular wall thickness. The left ventricu lar systolic function is normal. The Ejection Fraction is 55-60%. There is normal LV segmental wall m otion. Transmitral Doppler flow pattern is Grade II-pseudonormal filling dynamics. RIGHT VENTRICLE The right ventricle is normal size. The right ventricular systolic function is normal. ATRIA The left atrium is mildly dilated. The right atrium size is normal. The interatrial septum is intact with no evidence for an atrial septal defect or patent foramen ovale as noted on 2-D or Doppler imagi ng. AORTIC VALVE The aortic valve is calcified and displays decreased opening. Doppler and Color Flow revealed mild ao rtic regurgitation. Calculated aortic valve area is 1.3 cm2 with maximum pressure gradient of 37 mmHg and mean pressure gradient of 20 mmHg. Doppler and color-flow analysis revealed mild aortic stenosis . MITRAL VALVE The mitral valve is calcified but opens well. Mitral annular calcification is mild. There is no evide nce of mitral valve prolapse. There is no mitral valve stenosis. Doppler and Color-flow revealed mild mitral regurgitation. TRICUSPID VALVE The tricuspid valve is normal in structure and function. Doppler and Color Flow revealed mild tricusp id regurgitation. There is moderate pulmonary hypertension. The PA pressure was estimated at 53 mmHg. There is no tricuspid valve stenosis. PULMONIC VALVE The pulmonic valve is not well visualized. Doppler and Color Flow revealed mild pulmonic valvular reg urgitation. There is no pulmonic valvular stenosis. GREAT VESSELS The aortic root is normal in size. The ascending aorta is not well seen. The IVC is normal in size an d collapses >50% with inspiration. PERICARDIAL EFFUSION There is no evidence of significant pericardial effusion. Critical Notification Critical Value: No <Conclusion> The left ventricular systolic function is normal. The Ejection Fraction is 55-60%. There is normal LV segmental wall motion. Transmitral Doppler flow pattern is Grade II-pseudonormal filling dynamics. The left atrium is mildly dilated. Mild aortic stenosis. Mild aortic regurgitation. Mild mitral regurgitation. Mild tricuspid regurgitation. There is moderate pulmonary hypertension. The PA pressure was estimated at 53 mmHg. There is no evidence of significant pericardial effusion. Signed by : Jean Christensen, Electronically Approved : 03/22/2018 15:38:14
== END | disposition home or self-care (01) ==
LOC: ECHO 08:46
PROVIDERS: ATTEND Internal Medicine Cardiovascular Disease
DX: I08.8 Other rheumatic multiple valve diseases (principal); I27.20 Pulmonary hypertension, unspecified; I13.0 Hypertensive heart and chronic kidney disease with heart failure and stage 1 through stage 4 chronic kidney disease, or unspecified chronic kidney disease; E11.22 Type 2 diabetes mellitus with diabetic chronic kidney disease; I50.30 Unspecified diastolic (congestive) heart failure; N18.3 Chronic kidney disease, stage 3 (moderate); E78.00 Pure hypercholesterolemia, unspecified; E78.5 Hyperlipidemia, unspecified; I48.0 Paroxysmal atrial fibrillation; K21.9 Gastro-esophageal reflux disease without esophagitis; Z90.710 Acquired absence of both cervix and uterus
CPT/HCPCS: 93306

== ENCOUNTER → 2019-04-10 | Outpatient (CLI) | payer OTHER ==
[2017-12-06 13:31] VITALS: BP 124/52
[~2019-04-10] MED LIST changes: -AMLO10TA2 PO; +AMLO10TA8 PO; +AMLO5TAB10 PO; -AMLO5TAB2 PO; +CARV6.2511 PO; -CARV6.252 PO; -HYDR12.53 PO; +HYDR12.575 PO; +LOSA100T14 PO; -LOSA100T6 PO; -METF10003 PO; +METF10007 PO
--- NOTE | 2019-04-10 11:36 | CARD ---
MR#: [id number] Date of Study: 04/10/2019 Ordering Physician: STEPHEN KOCH, Referring Physician: STEPHEN KOCH, Tech: Maryana Galvez [facility] APPROVED REPORT EXAM: Two-dimensional and M-mode echocardiogram with Doppler and color Doppler. Other Information Quality : AverageHR: 68bpm Rhythm : Other INDICATION Congestive Heart Failure 2D DIMENSIONS RVDd3.5 (2.9-3.5cm)Left Atrium(2D)4.1 (1.6-4.0cm) IVSd1.2 (0.7-1.1cm)Aortic Root(2D)2.9 (2.0-3.7cm) LVDd4.6 (3.9-5.9cm)LVOT Diameter2.0 (1.8-2.4cm) PWd1.2 (0.7-1.1cm)LVDs3.4 (2.5-4.0cm) FS (%) 25.3 %SV47.5 ml LVEF(%)50.1 (>50%) M-Mode DIMENSIONS Left Atrium(MM)4.76 (2.5-4.0cm)Aortic Root3.05 (2.2-3.7cm) Aortic Valve AoV Peak Hamlet.340.4cm/sAoV VTI82.4cm AO Peak GR.46.3mmHgLVOT Peak Hamlet.93.7cm/s AO Mean GR.27mmHgAVA (VMAX)0.91cm2 RYNE (VTI)1.00cm2 Mitral Valve MV E Bwsswxuk821.7cm/sMV E Peak Gr.9mmHg MV DECEL NYTX820laYN A Uprwfzcf40.0cm/s MV E Mean Gr.2mmHgE/A Ratio1.4 Pulmonary Valve PV Peak Pqntmfpw12.7cm/s Tricuspid Valve TR P. Indvbtmb836ah/sRAP ZHTRWDKZ4vpYj TR Peak Gr.94cjBfNHLW00ouBm LEFT VENTRICLE The left ventricle is normal size. There is mild concentric left ventricular hypertrophy. Left ventri cathleen systolic function is normal. The Ejection Fraction is 55-60%. There is normal LV segmental wall m otion. Transmitral Doppler flow pattern is Grade II-pseudonormal filling dynamics. RIGHT VENTRICLE The right ventricle is normal size. There is normal right ventricular wall thickness. The right ventr icular systolic function is normal. ATRIA The left atrium is mildly dilated. The right atrium size is normal. The interatrial septum is intact with no evidence for an atrial septal defect or patent foramen ovale as noted on 2-D or Doppler imagi ng. AORTIC VALVE The aortic valve is trileaflet. The aortic valve is moderately calcified. Doppler and Color Flow reve aled trace aortic regurgitation. There is moderate valvular aortic stenosis. Calculated aortic valve area is 1.0 cm2 with maximum pressure gradient of 46 mmHg and mean pressure gradient of 27 mmHg. MITRAL VALVE The mitral valve is moderately thickened but opens well. There is no evidence of mitral valve prolaps e. There is no mitral valve stenosis. Doppler and Color-flow revealed mild mitral regurgitation. TRICUSPID VALVE The tricuspid valve is normal in structure and function. Doppler and Color Flow revealed mild tricusp id regurgitation. There is moderate pulmonary hypertension. The PA pressure was estimated at 40 mmHg. There is no tricuspid valve prolapse or vegetation. There is no tricuspid valve stenosis. PULMONIC VALVE The pulmonic valve is not well visualized. GREAT VESSELS The aortic root is normal in size. The ascending aorta is normal in size. The IVC is normal in size a nd collapses >50% with inspiration. PERICARDIAL EFFUSION There is no evidence of significant pericardial effusion. Critical Notification Critical Value: No <Conclusion> Left ventricle systolic function is normal. The Ejection Fraction is 55-60%. There is normal LV segmental wall motion. There is moderate valvular aortic stenosis. Mild mitral regurgitation. Mild tricuspid regurgitation. The PA pressure was estimated at 40 mmHg. There is no evidence of significant pericardial effusion. Signed by : Jean Christensen, Electronically Approved : 04/10/2019 11:36:01
--- NOTE | 2019-04-16 09:55 | RAD ---
MR#: [id number] Date of Study: 04/10/2019 Ordering Physician: STEPHEN KOCH, Referring Physician: STEPHEN KOCH, Tech: Manny Rivas MBA, RDMS, RVT, RDCS, RTR APPROVED REPORT Patient Location : OUT-PATIENT Indications Lower Extremity Edema : Bilateral Findings The right great saphenous vein measures 6.8 mm and the left great saphenous vein measures 6.4 mm. Bot h of these veins do not show any evidence of reflux. The bilateral lesser saphenous veins do not show any evidence of reflux. Critical Notification Critical Value: No <Conclusion> Negative for reflux in the bilateral greater and lesser saphenous veins Signed by : Stephen Koch, Electronically Approved : 04/16/2019 09:54:53
== END | disposition home or self-care (01) ==
LOC: US 08:51
PROVIDERS: ATTEND Internal Medicine Cardiovascular Disease
DX: I08.3 Combined rheumatic disorders of mitral, aortic and tricuspid valves (principal); I27.20 Pulmonary hypertension, unspecified; I11.0 Hypertensive heart disease with heart failure; I50.30 Unspecified diastolic (congestive) heart failure; I87.303 Chronic venous hypertension (idiopathic) without complications of bilateral lower extremity
CPT/HCPCS: 93306; 93970

== ENCOUNTER → 2019-09-13 | Outpatient (CLI) | payer MEDICARE ==
[2017-12-06 13:31] VITALS: BP 124/52
[~2019-09-13] MED LIST changes: -GLIM2TAB2 PO; +GLIM2TAB7 PO; +OMEP40CA45 PO; -OMEP40CA5 PO; +SIMV40TA18 PO; -SIMV40TA3 PO
--- NOTE | 2019-09-13 16:25 | RAD ---
CHEST PA LATERAL History: Shortness of breath Comparison: 10/02/2017 two-view chest x-ray exam. Findings: PA and lateral views of the chest were obtained. Cardiomediastinal silhouette is normal. Pulmonary vasculature is slightly congested. Subtle interstitial thickening in the lower lung seals is present. No focal consolidation.. No pleural effusion or pneumothorax is seen. There is no acute bone abnormality. IMPRESSION: Interstitial thickening at the lung bases which may been interstitial edema noted. No focal consolidation. Electronically signed by: Rome Eid MD (09/13/2019 4:22 PM) [id number]
== END | disposition home or self-care (01) ==
LOC: RAD 15:42
PROVIDERS: ATTEND Nurse Practitioner Family
DX: R09.89 Other specified symptoms and signs involving the circulatory and respiratory systems (principal)
CPT/HCPCS: 71046

== ENCOUNTER → 2020-10-31 | Outpatient (CLI) | payer MEDICARE ==
[2017-12-06 13:31] VITALS: BP 124/52
[~2020-10-31] MED LIST changes: +AMLO-186 PO; +AMLO-187 PO; -AMLO10TA8 PO; -AMLO5TAB10 PO; -ASPI-612 PO; +ASPI-886 PO; -LEVO112T4 PO; +LEVO112T49 PO
--- NOTE | 2020-10-31 13:52 | CARD ---
MR#: [id number] Date of Study: 10/31/2020 Ordering Physician: STEPHEN WHITTAKER, Referring Physician: STEPHEN WHITTAKER, Tech: Hansa Hernandezlubnalaura, [facility] APPROVED REPORT EXAM: Two-dimensional and M-mode echocardiogram with Doppler and color Doppler. Other Information Quality : AverageHR: 62bpm INDICATION Aortic Valve Disease RISK FACTORS Hypertension Hyperlipidemia Diabetes 2D DIMENSIONS RVDd4.0 (2.9-3.5cm)Left Atrium(2D)4.0 (1.6-4.0cm) IVSd1.2 (0.7-1.1cm)Aortic Root(2D)2.9 (2.0-3.7cm) LVDd4.9 (3.9-5.9cm)LVOT Diameter2.1 (1.8-2.4cm) PWd1.2 (0.7-1.1cm)LVDs3.0 (2.5-4.0cm) FS (%) 38.6 %SV77.1 ml LVEF(%)68.8 (>50%) Aortic Valve AoV Peak Hamlet.318.9cm/sAoV VTI85.3cm AO Peak GR.40.7mmHgLVOT Peak Hamlet.100.2cm/s LVOT VTI 27.76cmAO Mean GR.24mmHg RYNE (VMAX)0.27bb8VQH (VTI)1.11cm2 AI P 1/2 Trag783pi Mitral Valve MV E Qvnpqtey707.5cm/sMV DECEL HEYM899nt MV A Rkrfhjgr58.1cm/sMV WFU95vl E/A Ratio2.0MVA (PHT)3.71cm2 TDI E/Lateral E'18.7E/Medial E'22.7 Pulmonary Valve PV Peak Rhyynuqc320.7cm/sPV Peak Grad.4mmHg Tricuspid Valve TR P. Ntathawu692lh/sRAP IKQSUOCS0jdUd TR Peak Gr.20hkGwDUCQ69hiZq Pulmonary Vein S1 Gonxycrn87.6cm/sD2 Rsbsdgof02.4cm/s PVa yampveyf383qqrj LEFT VENTRICLE The left ventricle is normal size. There is mild concentric left ventricular hypertrophy. The left ve ntricular systolic function is normal and the ejection fraction is within normal range. The Ejection Fraction is 55-60%. There is normal LV segmental wall motion. Tissue Doppler imaging reveals moderate left ventricular diastolic dysfunction. RIGHT VENTRICLE The right ventricle is normal size. There is normal right ventricular wall thickness. The right ventr icular systolic function is normal. ATRIA The left atrium is borderline dilated. The right atrium is borderline dilated. The interatrial septum is intact with no evidence for an atrial septal defect or patent foramen ovale as noted on 2-D or Do ppler imaging. AORTIC VALVE The aortic valve is calcified with decreased leaflet motion. Doppler and Color Flow revealed trace ao rtic regurgitation. Calculated aortic valve area is 1.14 cm2 with maximum pressure gradient of 47 mmH g and mean pressure gradient of 29 mmHg. There is moderate valvular aortic stenosis by doppler evalua tion but visually the valve appears severely stenotic. MITRAL VALVE Mitral annular calcification is mild. There is no evidence of mitral valve prolapse. There is no mitr al valve stenosis. Doppler and Color-flow revealed trace mitral regurgitation. TRICUSPID VALVE The tricuspid valve is normal in structure and function. Doppler and Color Flow revealed trace tricus pid regurgitation with an estimated PAP of 42 mmHg. There is mild-moderate pulmonary hypertension. Th ere is no tricuspid valve stenosis. PULMONIC VALVE The pulmonic valve is not well visualized. Doppler and Color Flow revealed trace pulmonic valvular re gurgitation. There is no pulmonic valvular stenosis. GREAT VESSELS The aortic root is normal in size. The IVC is normal in size and collapses >50% with inspiration. PERICARDIAL EFFUSION There is no evidence of significant pericardial effusion. Critical Notification Critical Value: No <Conclusion> The left ventricular systolic function is normal and the ejection fraction is within normal range. Th e Ejection Fraction is 55-60%. There is normal LV segmental wall motion. Calculated aortic valve area is 1.14 cm2 with maximum pressure gradient of 47 mmHg and mean pressure gradient of 29 mmHg. There is moderate valvular aortic stenosis by doppler evaluation but visually th e valve appears severely stenotic. Signed by : Stephen Whittaker, Electronically Approved : 10/31/2020 13:52:02
== END ==
LOC: ECHO 08:45
PROVIDERS: ATTEND Internal Medicine Cardiovascular Disease
DX: I35.0 Nonrheumatic aortic (valve) stenosis (principal); I27.20 Pulmonary hypertension, unspecified; I51.81 Takotsubo syndrome; I51.7 Cardiomegaly
CPT/HCPCS: 93306

== ENCOUNTER → 2021-05-14 | Outpatient (CLI) | payer MEDICARE ==
[2017-12-06 13:31] VITALS: BP 124/52
[~2021-05-14] MED LIST changes: -OMEP40CA45 PO; +OMEP40CA7 PO
--- NOTE | 2021-05-14 16:50 | CARD ---
MR#: [id number] Date of Study: 05/14/2021 Ordering Physician: STEPHEN KOCH, Referring Physician: STEPHEN KOCH, Tech: Hansa Chand, [facility] APPROVED REPORT EXAM: Two-dimensional and M-mode echocardiogram with Doppler and color Doppler. Other Information Quality : AverageHR: 60bpm INDICATION Aortic Valve Disease RISK FACTORS Hypertension Hyperlipidemia Diabetes 2D DIMENSIONS RVDd3.0 (2.9-3.5cm)Left Atrium(2D)4.0 (1.6-4.0cm) IVSd1.1 (0.7-1.1cm)Aortic Root(2D)3.3 (2.0-3.7cm) LVDd5.1 (3.9-5.9cm)LVOT Diameter2.1 (1.8-2.4cm) PWd1.2 (0.7-1.1cm)LVDs2.8 (2.5-4.0cm) FS (%) 46.0 %SV95.8 ml LVEF(%)77.0 (>50%) Aortic Valve AoV Peak Hamlet.349.6cm/sAoV ZFQ801.4cm AO Peak GR.48.9mmHgLVOT Peak Hamlet.223.4cm/s LVOT VTI 34.34cmAO Mean GR.30mmHg RYNE (VMAX)1.00nt4PDO (VTI)1.17cm2 AI P 1/2 Zibz874hp Mitral Valve MV E Ijjyoqsj067.1cm/sMV DECEL NZXZ413tz MV A Hhpjbqwr684.8cm/sMV E Mean Gr.2mmHg MV UOK66vhP/A Ratio1.0 MVA (PHT)3.93cm2 TDI E/Lateral E'13.5E/Medial E'17.6 Pulmonary Valve PV Peak Vygkacza648.3cm/sPV Peak Grad.4mmHg Tricuspid Valve TR P. Dlorlwth734lc/sRAP LFIPGQXI3ejPv TR Peak Gr.46dkIaAKDM96xlYk Pulmonary Vein S1 Vkjmfcea08.2cm/sD2 Slhijzqd94.9cm/s PVa xvamspxn000lood LEFT VENTRICLE The left ventricle is normal size. There is mild concentric left ventricular hypertrophy. The left ve ntricular systolic function is normal. The Ejection Fraction is 55-60%. There is normal LV segmental wall motion. Tissue Doppler imaging reveals moderate left ventricular diastolic dysfunction. RIGHT VENTRICLE The right ventricle is normal size. There is normal right ventricular wall thickness. The right ventr icular systolic function is normal. ATRIA The left atrium is mildly dilated. The right atrium size is normal. The interatrial septum is intact with no evidence for an atrial septal defect or patent foramen ovale as noted on 2-D or Doppler imagi ng. AORTIC VALVE The aortic valve is calcified and displays decreased opening. Doppler and Color Flow revealed trace a ortic regurgitation. Calculated aortic valve area is 1.12 cm2 with maximum pressure gradient of 55 mm Hg and mean pressure gradient of 34 mmHg. There is moderate valvular aortic stenosis. MITRAL VALVE The mitral valve is mildly thickened. Mitral annular calcification is mild. There is no evidence of m itral valve prolapse. There is no mitral valve stenosis. Doppler and Color-flow revealed trace mitral regurgitation. TRICUSPID VALVE The tricuspid valve is normal in structure and function. Doppler and Color Flow revealed trace tricus pid regurgitation with an estimated PAP of 33 mmHg. There is no tricuspid valve stenosis. PULMONIC VALVE The pulmonic valve is not well visualized. Doppler and Color Flow revealed trace pulmonic valvular re gurgitation. GREAT VESSELS The aortic root is normal in size. The ascending aorta is normal in size. The IVC is normal in size a nd collapses >50% with inspiration. PERICARDIAL EFFUSION There is no evidence of significant pericardial effusion. Critical Notification Critical Value: No <Conclusion> The left ventricular systolic function is normal. The Ejection Fraction is 55-60%. There is normal LV segmental wall motion. Tissue Doppler imaging reveals moderate left ventricular diastolic dysfunction. Moderate valvular aortic stenosis with mean gradient 34 mm Hg.. Trace mitral regurgitation. Trace tricuspid regurgitation with an estimated PAP of 33 mmHg. There is no evidence of significant pericardial effusion. Signed by : Jean Christensen, Electronically Approved : 05/14/2021 16:50:12
== END ==
LOC: ECHO 09:21
PROVIDERS: ATTEND Internal Medicine Cardiovascular Disease
DX: I08.0 Rheumatic disorders of both mitral and aortic valves (principal)
CPT/HCPCS: 93306

== ENCOUNTER → 2021-11-04 | Outpatient (CLI) | payer MEDICARE ==
[2017-12-06 13:31] VITALS: BP 124/52
--- NOTE | 2021-11-04 16:28 | CARD ---
MR#: [id number] Date of Study: 11/04/2021 Ordering Physician: STEPHEN KOCH, Referring Physician: STEPHEN KOCH, Tech: Coleen Campbell [facility] APPROVED REPORT EXAM: Two-dimensional and M-mode echocardiogram with Doppler and color Doppler. Other Information Quality : AverageHR: 56bpm Rhythm : NSR INDICATION Aortic Valve Disease RISK FACTORS Hypertension Obesity Hyperlipidemia Diabetes 2D DIMENSIONS RVDd3.5 (2.9-3.5cm)Left Atrium(2D)3.9 (1.6-4.0cm) IVSd1.1 (0.7-1.1cm)Aortic Root(2D)2.9 (2.0-3.7cm) LVDd4.7 (3.9-5.9cm)LVOT Diameter1.9 (1.8-2.4cm) PWd1.0 (0.7-1.1cm)LVDs2.1 (2.5-4.0cm) FS (%) 54.2 %SV86.7 ml LVEF(%)85.0 (>50%) Aortic Valve AoV [place].351.7cm/sAoV OJC289.6cm AO Peak GR.49.5mmHgLVOT [place].118.3cm/s AO Mean GR.29mmHgAVA (VMAX)0.95cm2 Mitral Valve MV E Qbdswcxf460.6cm/sMV DECEL [id number] MV A Xnqvevjw65.8cm/sE/A Ratio1.2 Pulmonary Valve PV Peak Zujpdyxt11.3cm/s Tricuspid Valve TR P. Thuabumy813cw/sTR Peak Gr.28mmHg LEFT VENTRICLE The left ventricle is normal size. There is borderline to mild concentric left ventricular hypertroph y. The left ventricular systolic function is normal. Estimated ejection fraction 65-70%. There is nor mal LV segmental wall motion. Transmitral Doppler flow pattern is Grade II-pseudonormal filling dynam ics. RIGHT VENTRICLE The right ventricle is normal size. There is normal right ventricular wall thickness. The right ventr icular systolic function is normal. ATRIA The left atrium is moderately dilated. The right atrium is borderline dilated. The interatrial septum is intact with no evidence for an atrial septal defect or patent foramen ovale as noted on 2-D or Do ppler imaging. AORTIC VALVE The aortic valve is calcified and displays decreased opening. Doppler and Color Flow revealed trace a ortic regurgitation. Moderate aortic valvular stenosis with mean gradient 29 mmHg. MITRAL VALVE The mitral valve is thickened but opens well. Mitral annular calcification is mild. There is no evide nce of mitral valve prolapse. There is no mitral valve stenosis. Doppler and Color-flow revealed mild mitral regurgitation. TRICUSPID VALVE The tricuspid valve is normal in structure and function. Doppler and Color Flow revealed trace tricus pid regurgitation. Estimated PAP 32-35 mmHg. There is no tricuspid valve stenosis. PULMONIC VALVE The pulmonary valve is normal in structure and function. Doppler and Color Flow revealed mild pulmoni c valvular regurgitation. GREAT VESSELS The aortic root is normal in size. The ascending aorta is normal in size. The IVC is normal in size a nd collapses >50% with inspiration. PERICARDIAL EFFUSION There is no evidence of significant pericardial effusion. Critical Notification Critical Value: No <Conclusion> The left ventricular systolic function is normal. Estimated ejection fraction 65-70%. There is normal LV segmental wall motion. Transmitral Doppler flow pattern is Grade II-pseudonormal filling dynamics. Moderate aortic valvular stenosis with mean gradient 29 mmHg. Mild mitral regurgitation. Trace tricuspid regurgitation. Estimated PAP 32-35 mmHg. There is no evidence of significant pericardial effusion. Signed by : Jean Christensen, Electronically Approved : 11/04/2021 16:27:48
== END ==
LOC: ECHO 08:20
PROVIDERS: ATTEND Internal Medicine Cardiovascular Disease
DX: I08.8 Other rheumatic multiple valve diseases (principal)
CPT/HCPCS: 93306; C8929